=== PATIENT | female | born 1990 | race African-American/Black ===

== ENCOUNTER 2023-04-09 08:00 | Emergency (ER) | payer MEDICAID, SELFPAY ==
--- NOTE | ~2023-04-09 | CT_ITS ---
EXAMINATION: CT ABDOMEN AND PELVIS WITHOUT CONTRAST CLINICAL INFORMATION: Abdominal pain COMPARISON: None available. TECHNIQUE: Multidetector volumetric imaging was performed from the superior aspect of the liver through the pubic symphysis. Sagittal and coronal reformatted images were obtained on the technologist's workstation. This CT examination was performed using dose optimization techniques as appropriate, variously including the following: *Automated exposure control *Adjustment of mA and/or kV according to patient size (this includes techniques or standardized protocols for targeted exams where dose is matched to indication/reason for exam; i.e. extremities or head) *Use of iterative reconstruction technique DLP: 847 mGy-cm FINDINGS: LUNG BASES: The visualized lung bases are unremarkable. LIVER, GALLBLADDER, AND BILIARY TREE: The liver is normal in size, shape, and attenuation. No focal hepatic lesion or biliary ductal dilatation is present. The gallbladder is unremarkable with no evidence of radiopaque gallstones, gallbladder wall thickening, or obvious pericholecystic inflammatory changes. PANCREAS: Unremarkable. SPLEEN: Unremarkable. ADRENAL GLANDS: Unremarkable. KIDNEYS AND URETERS: The kidneys are normal in size, shape, and attenuation. No hydronephrosis, hydroureter, or calculi seen. No perinephric stranding. BLADDER: Unremarkable. GASTROINTESTINAL TRACT: The small and large bowel are unremarkable. The appendix is unremarkable. ABDOMINAL WALL: No significant hernia is appreciated. LYMPH NODES: Normal. VASCULAR: Unremarkable. PELVIC VISCERA: Unremarkable. OSSEOUS STRUCTURES: Extending from the lateral aspect of the right iliac crest, there is a 2.1 x 2.1 cm bony lesion which demonstrates at least partial medullary continuity with the iliac crest but does not demonstrate a completely developed chondral cap that is discernible on this CT examination. CT/CT abdomen pelvis wo IV con IMPRESSION: 1. No acute findings in the abdomen or pelvis. 2. Exophytic bony neoplasm extending laterally from the right iliac crest may reflect an osteochondroma/exostosis, though a well-defined chondral cap is not discerned. MRI is suggested for further assessment and characterization and to exclude the presence of soft tissue mass formation. Fleischner guidelines were followed.
[2023-04-09 08:32] VITALS: BP 128/81; PULSE 67; RESP 17; TEMP 36.4; O2SAT 97; BMI 39.9
[2023-04-09 12:28] LABS: Alanine Aminotransferase 14 U/L (0-31); Albumin Level 3.9 g/dL (3.5-5.0); Alkaline Phosphatase 35 U/L (39-117); Anion Gap 9 (12-20); Aspartate Amino Transferase 17 U/L (5-31); Bilirubin Total 0.4 mg/dL (0.0-1.0); Blood Urea Nitrogen 7 mg/dL (9-16); Calcium 9.1 mg/dL (8.4-10.2); Carbon Dioxide 23 mmol/L (22-29); Chloride 108 mmol/L (96-108); Creatinine Clr Calc Pharmacy 113.4; Estimated Glomerular Filt Rate > 60; Glucose Random 82 mg/dL (60-115); HCG Quantitative < 2 mIU/mL; Magnesium 2.1 mg/dL (1.6-2.6); Potassium 4.4 mmol/L (3.3-5.1); Sodium 136 mmol/L (135-145); Total Protein 7.2 g/dL (6.5-8.0)
[2023-04-09 14:38] VITALS: BP 109/88; PULSE 64; RESP 18; TEMP 37; O2SAT 98
--- NOTE | 2023-04-09 14:38 | ED_ITS ---
HPI - General Adult General Chief complaint: Abdominal Pain Stated complaint: Abd pain/vomiting Time Seen by Provider: 04/09/23 18:42 Source: patient and family (patient's mother) Mode of arrival: ambulatory Limitations: no limitations History of Present Illness HPI narrative: Patient is a 32 year old assigned female at with no reported medical history presenting to the emergency department today with abdominal pain. Patient states that she has had this pain for almost a year but it cyclically worsens every few weeks. Patient states that she has nausea and vomiting and Zofran does not work. Patient states that she was seen at an urgent care and they recommended she come to the ER immediately for appendicitis or gallbladder problem rule out. Patient denies any dizziness, lightheadedness, fever, chills, blurry vision, double vision, loss of vision, chest pain, difficulty breathing, shortness of breath, back pain, night sweats, pain with urination, increased urinary frequency, increased urinary urgency, blood in her urine or stool, syncope or a near syncopal episode, recent trauma or falls, bowel incontinence, bladder incontinence, bowel retention, bladder retention, or any other complaints at this time. Onset (ago): month(s) Location: abdomen Severity: mild Severity scale (1-10): 4 Pain Consistency: intermittent Relieving factors: none Exacerbating factors: none Associated symptoms: nausea/vomiting Treatments prior to arrival: other (zofran) Related Data Previous Rx's Medication Instructions Recorded metoclopramide HCl 5 mg tablet 5 mg PO DAILY #7 tabs 04/09/23 (Reglan) Allergies Allergy/AdvReac Type Severity Reaction Status Date / Time No Known Allergies Allergy Verified 04/09/23 11:20 Review of Systems 2 Constitutional: Constitutional: Reports no additional constitutional complaints, Denies chills, Denies fever(s) and Denies night sweats Eyes: Eyes: Reports no additional eye complaints, Denies blurry vision, Denies change in vision, Denies diplopia, Denies eye discharge, Denies loss of vision and Denies eye pain ENT: Denies dizziness Cardiovascular: Cardiovascular: Reports no additional cardiovascular complaints, Denies chest pain, Denies lightheadedness, Denies Loss of Consciousness and Denies dyspnea Respiratory: Respiratory: Reports no additional respiratory complaints and Denies dyspnea Gastrointestinal: Gastrointestinal: Reports no additional gastrointestinal complaints, Reports abdominal pain, Denies melena, Denies hematochezia, Denies change in bowel habits, Denies change in stool character, Reports nausea and Reports vomiting Genitourinary: Genitourinary: Denies hematuria, Denies urinary frequency, Denies dysuria, Denies urinary incontinence, Denies urinary hesitancy and Denies urinary urgency Musculoskeletal: Musculoskeletal: Reports no additional musculoskeletal complaints, Denies numbness and Denies tingling Neurologic: Denies dizziness, Denies loss of vision, Denies numbness and Denies tingling Psychiatric: Psychiatric: Reports no additional psychiatric complaints Endocrine: Endocrine: Reports no additional endocrine complaints Hematologic/Lymphatic: Hematologic/Lymphatic: Reports no additional hematologic/lymphatic complaints Allergic/Immunologic: Allergic/Immunologic: Reports no additional allergic/immunologic complaints PMFSH Past Medical History Attestation statement: The following information was validated with the patient. (all information validated with the patient's mother) Source: old records reviewed, obtained from family (patient's mother provided additional history and confirmed the history provided by the patient) and nursing notes reviewed Onset Date is defined in the Problem List Problems that require an onset date and time if occurred within 24 hrs of arrival to the ED Aortic Dissection and Rupture; Neurologic impairment; Cardiopulmonary Arrest; Endotracheal Intubation; Insertion or Replacement of Mechanical Circulatory Assist Device Social History Social History Advance Directives: No Advance Directives Information Provided: No Physical Exam ED Vital Signs: Vital Signs - 24 hr 04/09/23 08:32 04/09/23 14:38 Temperature 97.5 F 98.6 F Pulse Rate 67 64 Respiratory Rate 17 18 Blood Pressure 128/81 109/88 Pulse Oximetry 97 98 Oxygen Delivery Method Room Air Room Air BMI result Body Mass Index 39.9 Const General: cooperative, no acute distress, alert and awake Nutritional Appearance: well nourished Orientation/consciousness: patient oriented x3 Limitations: no limitations HENMT Head: Yes normal to inspection and Yes atraumatic Ears: hearing grossly normal bilaterally and external ears normal General nose exam: Normal external nose present, no nasal discharge noted and no epistaxis Face and sinus: Yes normal facial exam, No abrasion and No laceration Mouth: Normal oral and palatal mucosa present, no drooling and no muffled voice Eyes General: appearance normal, both eyes and all related structures Periorbital: periorbital findings normal Eyelids: Yes eyelids normal Conjunctivae: conjunctivae normal Pupils: Equal, round and reactive pupils present EOM: EOMs intact bilaterally Neck Neck: Yes normal visual inspection, Yes full ROM and Yes no lymphadenopathy Chest Chest palpation & inspection: normal inspection of the chest Resp Effort & Inspection: normal respiratory effort and able to speak in complete sentences GI Inspection: Yes normal to inspection Palpation (GI): Soft to palpation, not firm, nontender and no guarding Neuro General: patient oriented x3 and moves all extremities Cranial nerves: Yes Equal, round and reactive pupils present Cognition (Neuro): normal cognition Motor exam (neuro): 5/5 motor strength present throughout Sensory Exam: Normal double simultaneous stimulation for sensation Coordination: [id number] test normal Extrem General: Yes normal to inspection, Yes full ROM and Yes capillary refill normal Psych Appearance: grossly normal Mental Status: mental status grossly normal Affect: normal affect Attitude: cooperative Thought process: Normal thought process present Thought content: Normal thought content present Insight: Good insight present (Psych) Course Course Course Narrative: RME performed by Michelle Moore PA-C. Patient is a 32 year old assigned female at presenting to the emergency department with abdominal pain, nausea, and vomiting. Detailed physical exam and review of systems are deferred to the machine biller. Labs and swabs ordered. Patient placed back in the waiting room pending room availability and results. Medical Decision Making Medical Decision Making MDM Narrative: Patient is a 32 year old assigned female at with no reported medical history presenting to the emergency department today with intermittent abdominal pain, nausea, and vomiting. Patient's physical exam was unremarkable. Patient's blood work was unremarkable. Patient's urine showed no acute process. Patient's CT abdomen/pelvis showed a right iliac crest exophytic bony neoplasm consistent with osteochondroma. I explained my physical exam findings as well as all test results to the patient and the patient's mother. I answered all questions asked by the patient and the patient's mother. I stressed the importance of the patient taking her medication as prescribed. I stressed the importance of the patient following up with her primary care provider, a GI specialist, and an operating systems specialist. I stressed the importance of the patient returning to the emergency department immediately if her symptoms were to worsen or if she were to develop any dizziness, shortness of breath, difficulty breathing, chest pain, blurry vision, loss of vision, nausea, vomiting, abdominal pain, fever, chills, back pain, or any other complaints. Patient and the patient's mother verbalized agreement and understanding with this treatment plan and discharge. Differential Diagnosis Differential Diagnoses: The differential diagnosis associated with the presentation includes Abdominal pain Nausea Vomiting Admission/Observation Consideration of admission/observation: Escalation of care including admission/observation considered Patient would have been admitted to the hospital had her work up had any findings where hospital admission was appropriate and her clinical presentation warranted hospital admission. Lab Data [facility] Lab Attestation statement: I reviewed the patient's lab results. My interpretation of these results are in the [facility] Rationale portion of this note. 04/09/23 11:35 04/09/23 11:35 Labs: Lab Results 04/09/23 04/09/23 Range/Units 11:35 14:45 WBC 11.1 H (4.8-10.8) X10*3/uL RBC 4.37 (4.20-5.50) X10*6/uL Hgb 12.9 (12.0-16.0) g/dl Hct 38.9 (37.0-47.0) % MCV 89.0 (80.0-98.0) fL MCH 29.5 (27.0-33.0) pg MCHC 33.2 (31.0-35.0) g/dl RDW 13.2 (11.0-16.0) % Plt Count 216 (160-400) X10*3/uL MPV 9.4 (9.4-12.3) fL Immature Gran % (Auto) 0.2 (0.0-0.4) % Neut % (Auto) 52.0 (45-73) % Lymph % (Auto) 36.0 (20-40) % [place] % (Auto) 5.0 (2-11) % Eos % (Auto) 6.4 H (0-4) % Baso % (Auto) 0.4 (0-2) % Lymph # (Auto) 4.0 (1.2-4.9) X10*3/uL [place] # (Auto) 0.6 (0.1-1.2) X10*3/uL Eos # (Auto) 0.7 H (0.0-0.4) X10*3/uL Baso # (Auto) 0.0 (0.0-0.2) X10*3/uL Abs Immat Gran (auto) 0.02 (0.00-0.03) X10*3/uL Absolute Neuts (auto) 5.8 (2.0-8.3) x10*3/uL Absolute Nucleated RBC 0.000 (0.0-0.012) X10*3/uL Nucleated RBC % (auto) 0.0 (0.0-0.2) /100WBC Sodium 136 (135-145) mmol/L Potassium 4.4 (3.3-5.1) mmol/L Chloride 108 (96-108) mmol/L Carbon Dioxide 23 (22-29) mmol/L Anion Gap 9 L (12-20) BUN 7 L (9-16) mg/dL Creatinine 0.82 (0.5-1.4) mg/dL Estim Creat Clear Calc 113.4 Estimated GFR > 60 Random Glucose 82 (60-115) mg/dL Calcium 9.1 (8.4-10.2) mg/dL Magnesium 2.1 (1.6-2.6) mg/dL Total Bilirubin 0.4 (0.0-1.0) mg/dL AST 17 (5-31) U/L ALT 14 (0-31) U/L Alkaline Phosphatase 35 L (39-117) U/L Total Protein 7.2 (6.5-8.0) g/dL Albumin 3.9 (3.5-5.0) g/dL Beta HCG, Quant < 2 mIU/mL Urine Color Yellow Urine Appearance Clear Urine pH 7.0 (5.0-9.0) Ur Specific [place] 1.025 (1.005-1.025) Urine Protein Negative (Neg-Trace) mg/dL Urine Glucose (UA) Negative (Negative) mg/dL Urine Ketones 15 (Negative) mg/dL Urine Blood Negative (Negative) Urine Nitrite Negative (Negative) Ur Leukocyte Esterase Negative (Negative) Influenza Type A (PCR) NEGATIVE (Negative) Influenza Type B (PCR) NEGATIVE (Negative) RSV RNA Qual (PCR) NEGATIVE (Negative) SARS-CoV-2 RNA (RT-PCR) NEGATIVE (Negative) Independent Interpretation I performed an independent interpretation of an: CT Scan Interpretation: My interpretation is in agreement with the radiologist's impression of this imaging study. - EXAMINATION: CT ABDOMEN AND PELVIS WITHOUT CONTRAST CLINICAL INFORMATION: Abdominal pain COMPARISON: None available. TECHNIQUE: Multidetector volumetric imaging was performed from the superior aspect of the liver through the pubic symphysis. Sagittal and coronal reformatted images were obtained on the technologist's workstation. This CT examination was performed using dose optimization techniques as appropriate, variously including the following: *Automated exposure control *Adjustment of mA and/or kV according to patient size (this includes techniques or standardized protocols for targeted exams where dose is matched to indication/reason for exam; i.e. extremities or head) *Use of iterative reconstruction technique DLP: 847 mGy-cm FINDINGS: LUNG BASES: The visualized lung bases are unremarkable. LIVER, GALLBLADDER, AND BILIARY TREE: The liver is normal in size, shape, and attenuation. No focal hepatic lesion or biliary ductal dilatation is present. The gallbladder is unremarkable with no evidence of radiopaque gallstones, gallbladder wall thickening, or obvious pericholecystic inflammatory changes. PANCREAS: Unremarkable. SPLEEN: Unremarkable. ADRENAL GLANDS: Unremarkable. KIDNEYS AND URETERS: The kidneys are normal in size, shape, and attenuation. No hydronephrosis, hydroureter, or calculi seen. No perinephric stranding. BLADDER: Unremarkable. GASTROINTESTINAL TRACT: The small and large bowel are unremarkable. The appendix is unremarkable. ABDOMINAL WALL: No significant hernia is appreciated. LYMPH NODES: Normal. VASCULAR: Unremarkable. PELVIC VISCERA: Unremarkable. OSSEOUS STRUCTURES: Extending from the lateral aspect of the right iliac crest, there is a 2.1 x 2.1 cm bony lesion which demonstrates at least partial medullary continuity with the iliac crest but does not demonstrate a completely developed chondral cap that is discernible on this CT examination. CT/CT abdomen pelvis wo IV con IMPRESSION: 1. No acute findings in the abdomen or pelvis. 2. Exophytic bony neoplasm extending laterally from the right iliac crest may reflect an osteochondroma/exostosis, though a well-defined chondral cap is not discerned. MRI is suggested for further assessment and characterization and to exclude the presence of soft tissue mass formation. Fleischner guidelines were followed. Dictated By: Mike Bowles MD Signed By: Electronically signed by Mike Bowles MD 04/09/23 6328 Radiology Impression Discussion of test interpretation with radiology: I have reviewed the radiologist's reading. Independent Historian Clinical information obtained from an independent historian. History obtained from or confirmed by: Parent (patient's mother provided additional history and confirmed the history provided by the patient.) Prescription Management I considered prescription management with: Other (patient prescribed an anti- emetic.) Discharge Plan Discharge Clinical Impression: Osteochondroma, Abdominal pain Patient Disposition: Home, Self-Care Instructions: Abdominal Pain (ED), Benign Bone Tumor (DC) Additional Instructions: Follow up with your primary care provider, an orthopedic provider, and a GI specialist. Return to the emergency department immediately if your symptoms worsen or if you develop any dizziness, shortness of breath, difficulty breathing, chest pain, blurry vision, loss of vision, nausea, vomiting, abdominal pain, fever, chills, back pain, or any other complaints. Prescriptions: New metoclopramide HCl [Reglan] 5 mg tablet 5 mg PO DAILY Qty: 7 0RF Referrals: [facility] [place] [facility] [place] Group] (Call to establish and follow up with a GI specialist. ) [facility] [place] [Provider Group] (Call to establish and follow up with a primary care provider. If you already have a primary care provider, please follow up with them.) [facility] [place] [facility] [Provider Group] (Call to establish and follow up with a primary care provider. If you already have a primary care provider, please follow up with them.) [facility] [place] [facility] [Provider Group] (Call to establish and follow up with a primary care provider. If you already have a primary care provider, please follow up with them.) [facility] [place] [facility] [Provider Group] (Call to establish and follow up with an orthopedic provider.) Stand Alone Forms: Work/School Release Print Language: Wolof
== END 2023-04-09 21:49 | disposition home or self-care (01) ==
PROVIDERS: Physician Assistant Medical; Emergency Provider Emergency Medicine
DX: D16.9 Benign neoplasm of bone and articular cartilage, unspecified (principal); R11.2 Nausea with vomiting, unspecified; Z20.822 Contact with and (suspected) exposure to COVID-19; Z20.828 Contact with and (suspected) exposure to other viral communicable diseases; Z79.899 Other long term (current) drug therapy
CPT/HCPCS: 0241U; 36415; 74176; 80053; 81003; 83735; 84702; 85025; 99282; 99284

== ENCOUNTER 2023-06-28 08:03 | Outpatient (REF) | payer MEDICAID, SELFPAY ==
[2023-07-03 15:47] LABS: H Pylori Breath Test Negative (Negative)
== END 2023-06-28 08:04 | disposition home or self-care (01) ==
LOC: HO.HHCLNP 08:03
PROVIDERS: Visit Provider Nurse Practitioner Primary Care
DX: R10.13 Epigastric pain (principal)
CPT/HCPCS: 36415; 81513; 83013; 86592; 86803; 87389; 87491; 87591

== ENCOUNTER 2023-06-28 14:21 | Outpatient (REF) | payer MEDICAID, SELFPAY ==
[2023-06-29 04:07] LABS: HIV AB/AG Nonreactive (Nonreactive); HIV Num 1 0.04 S/CO (0.00-0.99); ~HepC Num1 0.22 S/CO (0.00-0.79); ~Hepatitis C Antibody Nonreactive (Nonreactive)
[2023-07-02 11:13] LABS: RPR Rapid Plasma Reagin NON-REACTIVE (NON-REACTIVE)
== END 2023-06-28 14:22 | disposition home or self-care (01) ==
LOC: HO.HHCL 14:21
PROVIDERS: Visit Provider Nurse Practitioner Primary Care
DX: Z11.3 Encounter for screening for infections with a predominantly sexual mode of transmission (principal)
CPT/HCPCS: 36415; 86592; 86803; 87389

== ENCOUNTER 2023-06-28 16:21 | Outpatient (REF) | payer MEDICAID, SELFPAY ==
[2023-06-29 14:48] LABS: C. trachomatis RNA TMA NOT DETECTED (NOT DETECTED); N. gonorrhoeae RNA TMA NOT DETECTED (NOT DETECTED)
== END 2023-06-28 16:22 | disposition home or self-care (01) ==
LOC: HO.HHCLNP 16:21
PROVIDERS: Visit Provider Nurse Practitioner Primary Care
DX: Z11.3 Encounter for screening for infections with a predominantly sexual mode of transmission (principal)
CPT/HCPCS: 36415; 81513; 87491; 87591

== ENCOUNTER 2023-07-26 08:50 | Outpatient (AMB) | payer MEDICAID, SELFPAY ==
[2023-07-26 08:58] VITALS: BMI 39.9
--- NOTE | 2023-07-26 08:58 | MHC.OFFVIS ---
Vital Signs 07/26/23 08:58 Height 5 ft 3 in Weight 225 lb BMI 39.9 Intake Visit Reasons: N/P lytic bone lesion of right hip per ref Intake Note: Barb is a 32 year old female who presents today as a new patient for a evaluation of her right hip lytic bone lesion. Patient reports she was at the ED department back in April when they did a CT scan and they informed her that she has a lesion in her right hip. She expresses that her pain comes and goes, however they are times when its constant every day. No hx of taking any meds to relieve pain. Allergies amoxicillin Allergy (Verified 07/26/23 09:12) Hives HPI HPI N/P lytic bone lesion of right hip per ref: Details: 32-year-old female who presents in the office today, as a new patient, for an evaluation of right hip pain. The patient was referred to the office by CARLOS Brady status post a CT at the ED obtained in 04/09/2023. While in the office today the patient reports she was seen in the ED in 04/[address] scan was obtained. She was informed it revealed a right hip lytic bone lesion. She states her pain is intermittent, but at times during the day it is constant. She denies a history of taking any medication for pain relief. 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 No ecchymosis, erythema, or edema. Full hip ROM in all planes. No tenderness to palpation over the greater trochanteric bursa. 5/5 strength with resisted hip flexion, knee extension, abduction, and abduction. Able to perform straight leg raise. NVI. 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 Solano is a 32-year-old female who presents in the office today, as a new patient, for an evaluation of right hip pain. The patient was referred to the office by CARLOS Brady status post a CT at the ED obtained in 04/09/2023. While in the office today the patient reports she was seen in the ED in 04/[address] scan was obtained. She was informed it revealed a right hip lytic bone lesion. She states her pain is intermittent, but at times during the day it is constant. She denies a history of taking any medication for pain relief. Case was reviewed with Dr. Inman who was not available to review the imaging in the office today and a collaborative treatment plan was made. The patient will be referred for a stat MRI with contrast for further evaluation of the sintia lesion on the right iliac crest. This has been ordered today. Follow up will be after the stat MRI imaging is obtained, or sooner if needed X-rays of the right hip which were obtained while in the office today and were reviewed by me, Tita Doe PA-C, revealed exophytic bony neoplasm extending laterally from the right iliac crest CT of the right hip, obtained in the ED on 4revealed: Exophytic sintia neoplasm extending laterally from the right iliac crest, may reflect an osteochondroma/exostosis, though as well-defined chondral cap is not discerned. Orders: Orders MR pelvis w con Today D49.89 - Neoplasm of unspecified behavior of other specified sites Patient Instructions: Scribed by Amy Garcia medical billing specialist, for Tita Doe PA-C on 07/26/2023 at 8:50 am, EST. Coding Level of Care Code New Pt Level 4 (09757) Diagnoses Neoplasm of pelvis D49.89
== END 2023-07-26 09:29 | disposition home or self-care (01) ==
PROVIDERS: Visit Provider Physician Assistant
DX: D49.89 Neoplasm of unspecified behavior of other specified sites (principal)
CPT/HCPCS: 99204

== ENCOUNTER 2023-07-26 09:07 | Outpatient (REF) | payer MEDICAID, SELFPAY ==
--- NOTE | ~2023-07-26 | XR_ITS ---
EXAMINATION: XR HIP, RIGHT CLINICAL INFORMATION: 2.1 cm bony lesion extending from the lateral aspect of the right iliac crest with at least partial medullary continuity with the iliac crest for which MRI was recommended for further evaluation to exclude presence of soft tissue mass. Pain in unspecified hip. COMPARISON: CT abdomen and pelvis 04/09/2023. TECHNIQUE: AP view of the pelvis as well as AP and frog lateral views of the right hip. FINDINGS: Radiopaque jewelry overlies the lower lumbar spine. Bilateral sacroiliac joints are symmetric. Pubic symphysis is preserved. Small pelvic calcifications are likely vascular. Bilateral right hip joints appear symmetric and preserved. Redemonstration of a bony exostosis along the lateral aspect of the right iliac crest measuring approximately 2 cm, better characterized on CT scan. As previously noted in prior report for CT scan, MRI recommended for further characterization. XR/XR hip RT min 2V IMPRESSION: Redemonstration of a bony exostosis along the lateral aspect of the right iliac crest measuring approximately 2 cm, better characterized on CT scan. As previously noted in prior report for CT scan, MRI recommended for further characterization to evaluate for possible associated pathology, soft tissue mass.
== END 2023-07-26 09:08 | disposition home or self-care (01) ==
LOC: HO.HOSX 09:07
PROVIDERS: Visit Provider Physician Assistant
DX: D49.89 Neoplasm of unspecified behavior of other specified sites (principal); M25.551 Pain in right hip
CPT/HCPCS: 73502; 99212

== ENCOUNTER 2023-09-11 14:58 | Outpatient (REF) | payer BC, SELFPAY ==
--- NOTE | ~2023-09-11 | MR_ITS ---
EXAMINATION: MR PELVIS WITHOUT AND WITH CONTRAST CLINICAL INFORMATION: Right iliac crest exophytic bone neoplasm COMPARISON: CT scan of abdomen and pelvis on 04/09/2023 TECHNIQUE: Examination was performed in a high field strength MRI scanner. Pre-contrast multiplanar multisequence MR imaging of the pelvis was performed without IV contrast enhancement. Post-contrast coronal, axial and sagittal T1 weighted fat suppressed images of the pelvis were obtained after IV injection of 10 mL Gadavist. FINDINGS: Urinary bladder is well filled with urine. Uterus is unremarkable. Pelvic fat plane is clean. No pelvic ascites is seen. No abnormally enlarged iliac or inguinal lymph nodes are found. Small umbilical hernia containing mesenteric fat is present. A bony protuberance is seen projecting from lateral cortex of anterior superior right iliac crest, measuring 1.8 cm in AP diameter, 2.2 cm in width, 1.5 cm in vertical height. The lesion remains isointense with the iliac bone with no signs of contrast enhancement, soft tissue component or aggressive new bone formation. The pelvis and bilateral hips are intact. Bilateral femoral heads and necks show normal signal without focal lesion. No abnormal joint effusion can be seen. The visualized bony pelvis show normal signal. Bilateral sacroiliac joints also appear unremarkable. MR/MR pelvis wo/w con IMPRESSION: 1. A 2.2 cm bony protuberance is seen projecting from lateral cortex of anterior superior right iliac crest, without signs of contrast enhancement, soft tissue component or aggressive new bone formation. 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 2. Small umbilical hernia containing mesenteric fat.
[2023-09-11] MEDS: gadobutroL 10 ML VIAL IVPUSH (16:17)
== END 2023-09-11 14:59 | disposition home or self-care (01) ==
LOC: HO.MRI 14:58
PROVIDERS: PCP Nurse Practitioner Primary Care; Visit Provider Physician Assistant
DX: D49.89 Neoplasm of unspecified behavior of other specified sites (principal)
CPT/HCPCS: 72197; A9585

== ENCOUNTER 2023-09-26 11:51 | Outpatient (AMB) | payer BC, SELFPAY ==
--- NOTE | 2023-09-26 11:51 | A.OFFVIS_ITS ---
Vital Signs 09/26/23 11:52 Height 5 ft 3 in Weight 225 lb BMI 39.9 Intake Visit Reasons: Pelvis MRI review Intake Note: Barb is a 33 year old female who is on the phone for a telehealth visit for a MRI review of her pelvis. Patient reports she is going well, however she is having some discomfort when she is laying down. 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 I last saw the patient in the office on 07/26/2023 when imaging was ordered.? While on the phone the patient reports she is doing well, however, is having some discomfort when laying down. ? 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 Telehealth Telehealth Telehealth Platform: Telephone Location of provider rendering services: practice address Location of patient: address on file Patient Identification confirmed using: Name, : Yes Telehealth method: voice only Patient verbally consented to treatment: Yes Patient verbally consented to billing insurance company: Yes Patient informed of any privacy concerns related to visit: Yes Minutes spent on Phone/Video with Pt.: 10 Assessment & Plan Assessment & Plan (1) Neoplasm of pelvis: Code(s): D49.89 - Neoplasm of unspecified behavior of other specified sites Category: Medical Plan Ms. 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 I last saw the patient in the office on 07/26/2023 when imaging was ordered.? ? While on the phone the patient reports she is doing well, however, is having some discomfort when laying down.? ? The patient may return to normal activities as tolerated. She no longer needs any additional orthopedic intervention; therefore, follow-up will be PRN, or sooner if needed. ? ? MRI of the pelvis, obtained on 09/11/2023, revealed: ? 1. A 2.2 cm bony protuberance is seen projecting from lateral cortex of anterior superior right iliac crest, without signs of contrast enhancement, soft tissue component or aggressive new bone formation. 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 2. Small umbilical hernia containing mesenteric fat.? Patient Instructions: Scribed by Amy Garcia medical case worker, for Tita Doe PA-C on 09/26/2023 at 11:49 am, EST.? Coding Level of Care Code Tele Est Pt Level 3 (54475) Diagnoses Neoplasm of pelvis D49.89
[2023-09-26 11:52] VITALS: BMI 39.9
== END 2023-09-26 12:13 | disposition home or self-care (01) ==
LOC: HO.HOS 11:51
PROVIDERS: PCP Nurse Practitioner Primary Care; Visit Provider Physician Assistant
DX: D49.89 Neoplasm of unspecified behavior of other specified sites (principal); M76.21 Iliac crest spur, right hip
CPT/HCPCS: 99441

== ENCOUNTER → 2023-09-26 11:51 | Outpatient (BNVA) | payer BC, SELFPAY | PROVIDERS: PCP Nurse Practitioner Primary Care; Visit Provider Physician Assistant ==

== ENCOUNTER 2023-10-19 09:53 | Outpatient (REF) | payer BC, SELFPAY ==
--- NOTE | ~2023-10-19 | XR_ITS ---
EXAMINATION: XR HAND, LEFT CLINICAL INFORMATION: Left hand/ring finger pain. COMPARISON: None available. TECHNIQUE: PA, lateral, and oblique views of the left hand. FINDINGS: Tiny, minimally displaced cortical fracture along the volar base of the fourth middle phalanx which contacts the periphery of the proximal interphalangeal articular surface. Mild surrounding soft tissue swelling. No additional fracture. Normal carpal alignment. No dislocation. No concerning lytic or blastic osseous lesion. No abnormal soft tissue calcification. XR/XR hand LT min 3V IMPRESSION: Tiny, minimally displaced buckle fracture along the volar base of the fourth middle phalanx. Mild surrounding soft tissue swelling.
== END 2023-10-19 09:54 | disposition home or self-care (01) ==
LOC: HO.HOSX 09:53
PROVIDERS: PCP Nurse Practitioner Primary Care
DX: S62.645A Nondisplaced fracture of proximal phalanx of left ring finger, initial encounter for closed fracture (principal)
CPT/HCPCS: 73130

== ENCOUNTER 2023-10-19 09:53 | Outpatient (AMB) | payer BC, SELFPAY ==
--- NOTE | 2023-10-19 10:06 | MHC.OFFVIS ---
Vital Signs 10/19/23 10:07 Height 5 ft 2 in Weight 192 lb BMI 35.1 Handedness Right Intake Visit Reasons: FC- nondisplaced fx LT ring finger Intake Note: Barb is a 33 year old right hand dominant female who presents today for a Left 5th digit fracture. Patient reports on 10/04/23 she was playing football with her son's friend, she said she went to catch the ball and saw her son also going towards the ball, she is unaware how she hurt her pinky at the time of this incident. She expresses immediate pain resulted after this injury. She was seen in [facility] where they took x-rays and placed her in a finger splint. She is unable to make a closed with with all her fingers due to this injury. There has been no improvement in her symptoms since the day of injury. She has tried ciing but found no relief. Allergies amoxicillin Allergy (Verified 10/19/23 10:13) [facility] Comments Details: Patient is a 33 YO F who presents for evaluation of a L ring finger fracture, date of injury 10/04/23. The patient reports that she was playing in her yard with her son, when he accidentally ran into her causing injury to her L ring finger. Patient previously evaluated and diagnosed with nondisplaced L ring finger fracture. Today, the patient reports that she is still experiencing significant pain, but that the ecchymosis and edema that she had at tome of injury has since resolved. Patient reports that she is unable to make a closed fist at this time. Patient reports that she has been wearing a silver finger splint since being previously evaluated, but she feels this splint is rather uncomfortable. 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 Neuro: Median, ulnar, radial nerves motor and sensory intact and sensation is normal to the tips of all digits. Vascular: Cap refill brisk Pain: Patient reports tenderness to palpation over the proximal phalanx of the left ring finger. No other pain to palpation noted ROM: Limited range of motion of both the left ring and small fingers due to pain, full and intact range of motion of the left thumb, index finger, middle finger Skin: No lacerations or abrasions. General: No ecchymosis, erythema, or evidence of infection. Psych: Appears grossly normal Affect normal Attitude cooperative Office Procedures Fracture Care Details: Left proximal phalanx fracture Fracture Billing Code: Fracture Billing Code Results Reviewed Results Reviewed: X-rays obtained in the office today and independently reviewed by me, Lobo Ron PA-C, demonstrate nondisplaced fracture of the proximal phalanx of the left ring finger. Assessment & Plan Assessment & Plan (1) Fracture of proximal phalanx of left ring finger: Code(s): S62.615A - Displaced fracture of proximal phalanx of left ring finger, initial encounter for closed fracture Category: Medical Qualifiers: Encounter type: initial encounter Fracture type: closed Fracture alignment: nondisplaced Qualified Code(s): S62.645A - Nondisplaced fracture of proximal phalanx of left ring finger, initial encounter for closed fracture Plan 1. Left ring finger proximal phalanx fracture, closed, nondisplaced Patient is educated on her injury Patient is informed about the typical recovery course Patient is informed that, due to nondisplaced nature of the injury, surgery will not be necessary Patient will be given a new silver finger splint to wear at all times except for bathing Patient educated that rest, ice, compression, elevation will help with swelling and pain due to this injury Patient is advised to continue using Tylenol, ibuprofen for pain control as needed Patient will follow-up in 2 weeks with repeat x-rays for reassessment of fracture and discussion of further treatment, sooner with any acute concerns Orders: Orders XR hand LT min 3V Today M79.642 - Pain in left hand Coding Level of Care Code New Pt Level 3 (21100) Diagnoses Closed nondisplaced fracture of proximal phalanx of left ring finger, initial encounter S62.645A Encounter type: initial encounter Fracture type: closed Fracture alignment: nondisplaced CPT Codes Fracture Care - Fracture Billing Code: Fracture Billing Code ([id number])
[2023-10-19 10:07] VITALS: BMI 35.1
== END 2023-10-19 10:56 | disposition home or self-care (01) ==
PROVIDERS: PCP Nurse Practitioner Primary Care
DX: S62.645A Nondisplaced fracture of proximal phalanx of left ring finger, initial encounter for closed fracture (principal)
CPT/HCPCS: 99203; 99213

== ENCOUNTER 2023-11-02 07:55 | Outpatient (REF) | payer BC, SELFPAY ==
--- NOTE | ~2023-11-02 | XR_ITS ---
EXAMINATION: XR HAND, LEFT CLINICAL INFORMATION: Pain in left hand COMPARISON: X-ray left hand of 10/19/2023. TECHNIQUE: PA, lateral, and oblique views of the left hand. FINDINGS: There appears to be a small chip fracture of the base of middle phalanx of the fourth finger; this is seen to best advantage on the oblique view. No distinct erosive process. Joint spaces appear to be maintained. There is no distinct change in alignment since the previous evaluation. XR/XR hand LT min 3V IMPRESSION: Small chip fracture at the base of middle phalanx of the fourth finger, without any appreciable change in alignment since the previous evaluation.
== END 2023-11-02 07:56 | disposition home or self-care (01) ==
LOC: HO.HOSX 07:55
DX: S62.657A Nondisplaced fracture of middle phalanx of left little finger, initial encounter for closed fracture (principal); X58.XXXA Exposure to other specified factors, initial encounter; Y93.9 Activity, unspecified; Y92.9 Unspecified place or not applicable; Y99.9 Unspecified external cause status
CPT/HCPCS: 73130

== ENCOUNTER 2023-11-02 12:50 | Outpatient (AMB) | payer BC, SELFPAY ==
[2023-11-02 12:53] VITALS: BMI 35.1
--- NOTE | 2023-11-02 12:53 | A.OFFVIS_ITS ---
Vital Signs 11/02/23 12:53 Height 5 ft 2 in Weight 192 lb BMI 35.1 Intake Visit Reasons: OV-nondisplaced fx LT ring finger-w/xray Intake Note: Barb is a 33 yo right hand dominant female who presents today for follow up evaluation of a nondisplaced fracture to the left ring finger. Today, patient reports pain level at 6/7 on the 0-10 pain scale. Patient reports not taking anything for the pain. She would like to try a different finger splint due to weird sensation from the metal. 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 Allergies amoxicillin Allergy (Verified 11/02/23 12:53) Hives HPI HPI OV-nondisplaced fx LT ring finger-w/xray: Details: Patient is a 33-year-old female presents for repeat evaluation of nondisplaced fracture of the proximal phalanx of the left ring finger, date of injury 10/04/2023. Today, patient reports that she is feeling well and then she is not experiencing any pain at the fracture site. However, she does feel that her finger is stiff from being in the splint. Patient also reports that she is having some itchiness in response to the splint being on, and inquires if she will be able to remove that at this time. Patient denies any numbness or tingling in the left hand. No other acute complaints or concerns at this time. 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 Neuro: Median, ulnar, radial nerves motor and sensory intact and sensation is normal to the tips of all digits. Vascular: Cap refill brisk Pain: Patient reports no tenderness to palpation about the fracture site Patient does report discomfort on the dorsal aspect of the MCP and PIP joints when she attempts to make a closed fist, but states that this feels more like a stiffness than a sharp pain. ROM: Reduced active range of motion of the right ring finger With encouragement, patient is able to get approximately 0.5 cm from making a full closed fist Extension full and intact Range of motion about her digits of the left hand full and intact Skin: No lacerations or abrasions. General: No ecchymosis, erythema, or evidence of infection. Psych: Appears grossly normal Affect normal Attitude cooperative Results Reviewed Results Reviewed: X-rays obtained in the office today and independently reviewed by me, Lobo Ron PA-C, demonstrate nondisplaced fracture of the proximal phalanx of the left ring finger, unchanged from previous x-rays. Assessment & Plan Assessment & Plan (1) Fracture of proximal phalanx of left ring finger: Code(s): S62.615A - Displaced fracture of proximal phalanx of left ring finger, initial encounter for closed fracture Category: Medical Qualifiers: Encounter type: initial encounter Fracture alignment: nondisplaced Fracture type: closed Qualified Code(s): S62.645A - Nondisplaced fracture of proximal phalanx of left ring finger, initial encounter for closed fracture Plan 1. Fracture proximal phalanx of left ring finger Treated nonoperatively Patient is healing well from her injury Patient is educated about the typical recovery course At this point, patient is informed that she no longer needs to wear the silver finger splint, and can switch to jose taping for stabilization Patient is also encouraged to begin gentle range of motion of the left ring finger in order to prevent stiffness Patient is educated to continue to adhere to a strict 2 lb weight limit in that hand Patient reports that she has been working, but has been able to accommodate this 2 lb weight Patient will follow-up in 4 weeks for [id number] check, x-rays if necessary, sooner with any acute concerns Orders: Orders XR hand LT min 3V 11/02/23 M79.642 - Pain in left hand Coding Level of Care Code Global (00136) Diagnoses Closed nondisplaced fracture of proximal phalanx of left ring finger, initial encounter S62.645A Encounter type: initial encounter Fracture alignment: nondisplaced Fracture type: closed
== END 2023-11-02 13:36 | disposition home or self-care (01) ==
PROVIDERS: PCP Nurse Practitioner Primary Care
DX: S62.645A Nondisplaced fracture of proximal phalanx of left ring finger, initial encounter for closed fracture (principal)
CPT/HCPCS: 99213

== ENCOUNTER 2023-12-07 16:22 | Outpatient (REF) | payer BC, SELFPAY | END 2023-12-07 16:23 | disposition home or self-care (01) | LOC: HO.HHCLNP 16:22 | PROVIDERS: Visit Provider Nurse Practitioner Primary Care | DX: Z13.89 Encounter for screening for other disorder (principal) ==

== ENCOUNTER 2023-12-12 11:02 | Outpatient (REF) | payer BC, SELFPAY ==
[2023-12-13 06:14] LABS: CT PCR NOT DETECTED (Not Detect.); NG PCR NOT DETECTED (Not Detect.)
== END 2023-12-12 11:03 | disposition home or self-care (01) ==
LOC: HO.HHCL 11:02
PROVIDERS: Visit Provider Nurse Practitioner Primary Care
DX: Z00.00 Encounter for general adult medical examination without abnormal findings (principal); Z11.3 Encounter for screening for infections with a predominantly sexual mode of transmission
CPT/HCPCS: 87491; 87591

== ENCOUNTER 2024-04-30 13:29 | Outpatient (REF) | payer BC, SELFPAY ==
--- OUTSIDE RECORDS SUMMARY | 2024-04-30 15:43 | XMS_ITS | Encounter Summary ---
Author Organization [employer] Address [address] [place] [address] [place] [address] Care Team Providers Care Apartment Community Manager Name Role Phone Heather Mello Primary Care Provider [phone] Sophie Fajardo Primary Care Provider [phone] Reason for Visit * Reason Comments Med Refill Encounter Details Date Type Department Care Team (Late st Contact Info) Description 08/10/2022 Refill [facility] MEDICINE [address] [place] [address] Mari Fragoso FNP [address] [place], [place] [phone] Social History Tobacco Use Types Packs/Day Years Used Date Smoking Tobacco: Never Assessed Comments Unknown Sex and Gender Information Value Date Recorded Sex Assigned at Female 01/30/2022 10:38 AM EDT Legal Sex Female 10:38 AM EDT Gender Identity Female 01/30/2022 10:38 AM EDT Sexual Orientation Straight 01/30/2022 10 :38 AM EDT documented as of this encounter Plan of Treatment Not on file documented as of this encounter Visit Diagnoses Not on filedocumented in this encounter Care Teams Apartment Community Manager Relationship Specialty Start Date End Date Heather Mello FNP [address] [place], [place] [phone] PCP - General Family Medicine 11/24/21 12/27/22 Sophie Fajardo ANP [address] [place] [id number] PCP - General Family Medicine 05/10/23 documented as of this encounter
--- OUTSIDE RECORDS SUMMARY | 2024-04-30 15:43 | XMS_ITS | Encounter Summary ---
Author Organization [employer] Address [address] [facility] [address] [place] [address] Care Team Providers Care Development Associate Name Role Phone Sophie Fajardo Primary Care Provider [phone] Reason for Visit * Reason Comments Med Refill Encounter Details Date Type Department Care Team ([facility] st Contact Info) Description 01/17/2023 Refill [facility] MEDICINE [address] [place] [address] PomonaMari FNP [address] [place] [address] Social History Tobacco Use Types Packs/Day Years [...] on filedocumented in this encounter Care Teams Development Associate Relationship Specialty Start Date End Date Sophie Fajardo ANP [address] [place] [address] PCP - General Family Medicine 05/10/23 documented as of this encounter
--- OUTSIDE RECORDS SUMMARY | 2024-04-30 15:43 | XMS_ITS | Encounter Summary ---
Author Organization [employer] Address [address] [place] [address] Care Team Providers Care Remote Sensing Engineer Name Role Phone Sophie Fajardo CARLOS Primary Care Provider [phone] Reason for Visit * Reason Onset Date Comments Paperwork/Forms 04/29/2024 Encounter Details Date Type Department Care Team ([facility] st Contact Info) Description 04/29/2024 Telephone [facility] MEDICINE [address] [place], [place] [phone] Kamla De León, RN [address] [place] [address] Paperwork/Forms Social History Tobacco Use Types Packs/Day Years Used Date Smoking Tobacco: Never Smokeless Tobacco: Never Alcohol Use Standard Drinks/Week Comments Yes 0 (1 standard drink = 0.6 oz pur e alcohol) occasionally Depression Answer Date Recorded Patient Health Questionnaire-9 Score 0 06/28/2023 Patient Health Questionnaire-9 Score 0 06/28/2023 Last PHQ-9: Questionnaire Data Not on file 0 06/28/2023 Housing Stability Answer Date Recorded What is your housing situation today? I have derik moncada 06/28/[address] you li ve. Do you have problems with any of the following? None of the above 06/28/2023 Food Insecurity Answer Date Recorded Within the past 12 months, y ou worried that your food would run out before you got money to buy more: Never True 06/28/2023 Within the past 12 months,th e food you bought just didn't last and you didn't have enough money to get more: Never True Transportation Answer Date Recorded In the past 12 months, has l ack of transportation kept you from medical appts, meetings, work or from getting things needed for daily living? No 06/28/2023 Utilities Answer Date Recorded In the past 12 months, has t he electric, gas, oil or water company threatened to shut off services in your home? No 06/28/2023 Depression Answer Date Recorded Patient Health Questionnaire-2 Score 0 06/28/2023 Internet Access Answer Date Recorded Internet Access Q1 Yes 11/30/2023 Internet Access Q2 Not on file 11/30/2023 Comments No Sex and Gender Information Value Date Recorded Sex Assigned at Female 01/30/2022 10:38 AM EDT Legal Sex Female 10:38 AM EDT Gender Identity Female 01/30/2022 10:38 AM EDT Sexual Orientation Straight 01/30/2022 10 :38 AM EDT documented as of this encounter Miscellaneous Notes * Telephone Encounter - Kamla De León RN - 04/29/2024 3:55 PM EST Received paperwork for pt's school requesting PE info and vaccine info. Filled out. Informed pt needs varicella titer and possible TB testing per paperwork. Labs ordered and directed pt to come to the lab so I can finish her forms. documented in this encounter Plan of Treatment Scheduled Orders Name Type Priority Associated Diagnoses Orde r Schedule Varicella Zoster Antibody, IgG Lab Routine Immunity status testing Expected: 04/29/2024 (Approximate), Expires: 04/29/2025 T-SPOT??.TB Lab Routine Screening for tuberculosis Expected: 04/29/2024 (Approximate), Expires: 04/29/2025 documented as of this encounter Visit Diagnoses Diagnosis Immunity status testing Antibody response examination Screening for tuberculosis Screening examination for pulmonary tuberculosis documented in this encounter Additional Health Concerns Assessment Noted Time PHQ-9 Depression Total Score: 0 06/28/19 1:24 PM EDT documented as of this encounter Care Teams Remote Sensing Engineer Relationship Specialty Start Date End Date Sophie Fajardo ANP [address] [place] [id number] PCP - General Family Medicine 05/10/23 documented as of this encounter
--- OUTSIDE RECORDS SUMMARY | 2024-04-30 15:43 | XMS_ITS | Encounter Summary ---
Author Organization [employer] Address [address] [place] [address] [place] [address] Care Team Providers Care Supervisor Salvage Name Role Phone Heather Mello Primary Care Provider [phone] Sophie Fajardo Primary Care Provider [phone] Reason for Visit * Reason Comments Med Refill Encounter Details Date Type Department Care Team (Late st Contact Info) Description 09/29/2022 Refill [facility] MEDICINE [address] [place] [address] Mari Fragoso FNP [address] [place], [place] [phone] Social History Tobacco Use Types Packs/Day Years [...] on filedocumented in this encounter Care Teams Supervisor Salvage Relationship Specialty Start Date End Date Heather Mello FNP [address] [place], [place] [phone] PCP - General Family Medicine 11/24/21 12/27/22 Sophie Fajardo ANP [address] [place] [address] [phone] PCP - General Family Medicine 05/10/23 documented as of this encounter
--- OUTSIDE RECORDS SUMMARY | 2024-04-30 15:43 | XMS_ITS | Clinical Summary ---
Author Organization [employer] Address [address] [facility] 7t [place] [address] Care Team Providers Care Wrapper Hand Name Role Phone Sophie Fajardo CARLOS Primary Care Provider [phone] Allergies Active Allergy Reactions Criticality Noted Date Comments Amoxicillin Rash Low 11/12/2020 Medications omeprazole (PriLOSEC) [address] capsuleIndicati ons:Epigastric pain Take 1 capsule (20 mg) by mouth before breakfast and before evening meal. Do not crush or chew. 120 capsule 4 Active drospirenone-et hinyl estradiol (Cindy) 3-0.02 MG tabletIndicatio ns: control counseling TAKE 1 TABLET BY MOUTH EVERY DAY IN THE MORNING 84 tablet 3 4 Active Active Problems Problem Noted Date Diagnosed Date Lytic bone lesion of hip 12/07/2023 Overview (12/07/2023): Established / [facility] Ortho for exophytic bony neoplasm extending laterally from the right iliac crest 09/26/23 Ortho note She no longer needs any additional orthopedic intervention; therefore, follow-up will be PRN, or sooner if needed. MRI of the pelvis, obtained on 09/11/2023, revealed: 1. A 2.2 cm bony protuberance is seen projecting from lateral cortex of anterior superior right iliac crest, without signs of contrast enhancement, soft tissue component or aggressive new bone formation. 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 2. Small umbilical hernia containing mesenteric fat. Epigastric pain 12/07/2023 Overview (12/07/2023): Images from the original note were not included. Saw [facility] 09/2023 PPI did not help, h. Pylori breath test negative Anxiety 06/29/2023 Polycystic ovary syndrome 06/29/2023 Encounters Date Type Department Care Team Description 04/29/[address] [facility] [address] [place] [address] Kamla De León, RN Paperwork/Forms from Last 3 Months Immunizations Name Administration Dates Next Due Hep B, Unspecified 07/17/2016 Hep B, adult 12/31/2019,07/28/2019,06/20/2019 Influenza Injectable Quadriv alant Preservative Free IIV4 MDCK 12/25/2022,12/28/2021,12/31/2019 Influenza injectable quadriv alent preservative free 12/29/2020 MMR 07/17/2016 Tdap 06/20/2019,07/09/2010 Typhoid, ViCPs 06/19/2022 Social History Tobacco Use Types Packs/Day Years Used Date Smoking Tobacco: Never Smokeless Tobacco: Never Tobacco Cessation:Counseling Given: Not Answered Alcohol Use Standard Drinks/Week Comments Yes 0 [...] Orientation Straight 01/30/2022 10 :38 AM EDT Last Filed Vital Signs Vital Sign Reading Time Taken Comments Blood Pressure 110/70 12/07/2023 1:55 PM EDT Pulse 59 12/07/2023 1:55 PM EDT Temperature 37.7 ??C (99.9 ??F) 12/07/2023 1:55 PM ED T Respiratory Rate 16 12/07/2023 1:55 PM EDT Oxygen Saturation 98% 07/05/2023 10:28 AM EDT Inhaled Oxygen Concentration - - Weight 95.4 kg (210 lb 6.4 oz) 12/07/2023 1:55 P M EDT Height 157.5 cm (5' 2 ) 07/05/2023 10:28 AM EDT Body Mass Index 38.48 07/05/2023 10:28 AM EDT Plan of Treatment Health Maintenance Due Date Last Done Comments Alcohol/Substance Use Screening 2003 Family Planning (PISQ) 07/28/2006 Pap Smear 07/28/2012 Cervical Cancer Screening 07/28/2021 HPV/Cotest 07/28/2021 Influenza Vaccine (#1) 2023 3, 12/28/2021, 12/29/2020, Additional history exists Depression Screening 06/27/2024 06/28/2023, 06/28/19 24 SDOH Screening 06/27/2024 06/28/2023 Tobacco Screening 12/06/2024 12/07/2023 Lipid Panel 11/12/2025 11/12/2020 DTaP/Tdap/Td Vaccines (3 - Td or Tdap) 06/19/2029 06/20/2019, 07/09/2010 Zoster Vaccines (1 of 2) 07/28/2041 RSV Patients and Patients Aged 60 years or older (1 - 1-dose 75+ series) 07/28/2066 Hepatitis B Vaccines Completed 12/31/2019, 07/28/2019, 06/20/2019, Additional history exists HIV Screening Completed 06/28/2023, 11/12/2020 Hepatitis C Screening Completed 06/28/2023 COVID-19 Vaccine Completed 04/27/2024 HIB Vaccines Aged Out No longer eligi ble based on patient's age to complete this topic HPV Vaccines Aged Out No longer eligi ble based on patient's age to complete this topic Hepatitis A Vaccines Aged Out No long er eligible based on patient's age to complete this topic IPV Vaccines Aged Out No longer eligi ble based on patient's age to complete this topic Meningococcal Vaccine Aged Out No foreign maddi eligible based on patient's age to complete this topic Pneumococcal Vaccine: Pediatrics (0 to 5 Years) and At-Risk Patients (6 to 49) Years) Aged Out No longer eligible based on patient's age to complete this topic RSV under 20 months Aged Out No longe r eligible based on patient's age to complete this topic Rotavirus Vaccines Aged Out No longer eligible based on patient's age to complete this topic Procedures Procedure Name Priority Date/Time Associated Diagnosis Comments HEPATITIS C AB W/REFL TO HCV RNA, QN, PCR Routine 06/28/2023 2:24 PM EDT Routine screening for STI (sexually transmitted infection) HIV 1/2 ANTIGEN/ANTIBODY, FOURTH GENERATION W/RFL Routine 06/28/2023 2:24 PM EDT Routine screening for STI (sexually transmitted infection) LIPID PANEL, STANDARD Routine 11/12/2020 10:39 AM EDT from Last 3 Months or Most Recently Relevant to Health Maintenance Results * Hepatitis C Antibody with Reflex to HCV, RNA, Quantitative, Real-Time PCR (06/28/2023 2:24 PM EDT) Hepatitis C Antibody Nonreactive Nonreactive [facility] Comment:Antibodies to HCV no t detected; does not exclude early acuteHCV infection. Blood Venous blood specimen / Unknown 06/28/2023 2:24 PM EDT 06/28/2023 4:12 PM EDT Sophie Fajardo [facility] LAB BLOOD ORDERABLES Final Resul t Performing Organization Address [facility] de Phone Number [facility] [address] [place] [address] [phone] * HIV-1/2 Antigen and Antibodies, Fourth Generation, with Reflexes (06/28/2023 2:24 PM EDT) Pathologist [facility] HIV AB/AG Nonreactive Nonreactive [facility] Comment:HIV-1 p24 Ag and/or HIV-1/HIV-2 Ab not detected.A test result that is nonreactive does not exclude thepossibility of exposure to or infection with HIV-1 and/orHIV-2. Nonreactive results in this assay for individualswith prior exposure to HIV-1 and/or HIV-2 may be due toantigen and antibody levels that are below the limit ofdetection of this assay.The [facility] HIV Ag/Ab Combo assay result andsupplemental assay results should be interpreted inconjunction with the patient's clinical presentation,history and other laboratory results. If the results areinconsistent with clinical evidence, additional testing issuggested to confirm the result. Blood Venous blood specimen / Unknown 06/28/2023 2:24 PM EDT 06/28/2023 4:12 PM EDT Sophie Fajardo [facility] LAB BLOOD ORDERABLES Final Resul t Performing Organization Address [facility] Co de Phone Number [facility] [address] [place] [address] [phone] * (ABNORMAL) LIPID PANEL, STANDARD (11/12/2020 10:39 AM EDT) Pathologist [facility] Chol/HDLC Ratio 3.3 <5.0 (calc) [facility] Cholesterol, Total 183 <200 mg/dL [facility] HDL Cholesterol 56 > OR = 50 mg/dL [facility] LDL Cholesterol 107(H) mg/dL (calc) [facility] Comment: Reference range: <100 ?? Desirable range <100 mg/dL for primary prevention; ?? <70 mg/dL for patients with CHD or diabetic patients ?? with > or = 2 CHD risk factors. ?? LDL-C is now calculated using the Anel ?? calculation, which is a validated novel method providing ?? better accuracy than the Friedewald equation in the ?? estimation of LDL-C. ?? Layo MORIN et al. MARLON. 2013;310(19): 1116-3038 ?? (http://[employer].Ace Metrix/faq/MHS981) Non-HDL Cholesterol 127 <130 mg/dL (calc) [facility] Comment: For patients with diabetes plus 1 major ASCVD risk ?? factor, treating to a non-HDL-C goal of <100 mg/dL ?? (LDL-C of <70 mg/dL) is considered a therapeutic ?? option. Triglycerides 100 <150 mg/dL [facility] 11/12/2020 10:3 9 AM EDT us Viri An PROGRAM ADVISOR LAB BLOOD ORDERABLES Final Res ult [facility] [address] from Last 3 Months or Most Recently Relevant to Health Maintenance Insurance HMO Care Teams Wrapper Hand Relationship Specialty Start Date End Date Sophie Fajardo ANP [address] [place] [phone] PCP - General Family Medicine 05/10/23
--- OUTSIDE RECORDS SUMMARY | 2024-04-30 15:43 | XMS_ITS | Encounter Summary ---
Author Organization [employer] Address [address] [facility] 7t [place] [address] Care Team Providers Care Clubhouse Manager Name Role Phone Sophie Fajardo Primary Care Provider [phone] Reason for Visit * Reason Comments Med Refill Encounter Details Date Type Department Care Team ([facility] st Contact Info) Description 10/29/2023 Refill [facility] [address] [place], [place] [phone] Sophie Fajardo ANP [address] [place], [place] [phone] control counseling Social History Tobacco Use Types Packs/Day Years [...] Recorded Patient Health Questionnaire-2 Score 0 06/28/2023 Comments No Sex and Gender Information Value Date Recorded Sex Assigned at Female 01/30/2022 10:38 AM EDT Legal Sex Female 10:38 AM EDT Gender Identity Female 01/30/2022 10:38 AM EDT Sexual Orientation Straight 01/30/2022 10 :38 AM EDT documented as of this encounter Plan of Treatment Not on file documented as of this encounter Visit Diagnoses Diagnosis control counseling documented in this encounter Additional Health Concerns Assessment Noted Time PHQ-9 Depression Total Score: 0 06/28/19 24 1:24 PM EDT documented as of this encounter Care Teams Clubhouse Manager Relationship Specialty Start Date End Date Sophie Fajardo ANP [address] [place] [phone] PCP - General Family Medicine 05/10/23 documented as of this encounter
--- OUTSIDE RECORDS SUMMARY | 2024-04-30 15:43 | XMS_ITS | Clinical Summary ---
Author Organization [employer] [facility] Address [address] [place] [address] Care Team Providers Care Cnc Grinder Name Role Phone Unavailable Primary Care Provider Unavailabl e Social History Tobacco Use Types Packs/Day Years Used Date Smoking Tobacco: Never Assessed Sex and Gender Information Value Date Recorded Sex Assigned at Not on file Gender Identity Not on file Sexual Orientation Not on file Plan of Treatment Health Maintenance Due Date Last Done Comments DTaP,Tdap,and Td Vaccines (1 - Tdap) 07/28/2010 Hepatitis B Vaccines (1 of 3 - 19+ 3-dose series) 07/28/2010 Cervical Cancer Screening: P ap Smear 07/28/2012 COVID-19 Vaccine (2023-2 5 season) 2023 Influenza Vaccine (#1) 2023 HIB Vaccines Aged Out No longer eligi [...] on patient's age to complete this topic MMR Vaccines Aged Out No longer eligi ble based on patient's age to complete this topic Meningococcal ACWY Vaccine Aged Out N o longer eligible based on patient's age to complete this topic Pneumococcal Vaccine: Pediat rics (0 to 5 Years) and At-Risk Patients (6 to 64 Years) Aged Out No longer eligible b ased on patient's age to complete this topic RSV Immunization Patients Un yandy 20 months Aged Out No longer eligible b ased on patient's age to complete this topic Varicella Vaccines Aged Out No longer eligible based on patient's age to complete this topic
[2024-04-30 16:17] LABS: MANUAL DIFF FLAG NO
[2024-04-30 16:46] LABS: Basophils Percent Auto 0.5 % (0-2); Eosinophils Absolute Auto 0.3 X10*3/uL (0.0-0.4); Eosinophils Percent Auto 4.3 % (0-4); Hematocrit 35.4 % (37.0-47.0); Hemoglobin 12.1 g/dl (12.0-16.0); Imm Gran Abs Auto 0.02 X10*3/uL (0.00-0.03); Imm Gran Pct Auto 0.3 % (0.0-0.4); Lymphocytes Absolute Auto 3.3 X10*3/uL (1.2-4.9); Mean Corpuscular HGB Conc 34.2 g/dl (31.0-35.0); Mean Corpuscular Hemoglobin 30.3 pg (27.0-33.0); Mean Corpuscular Volume 88.5 fL (80.0-98.0); Mean Platelet Volume 9.7 fL (9.4-12.3); Monocytes Absolute Auto 0.6 X10*3/uL (0.1-1.2); Monocytes Percent Auto 8.1 % (2-11); Neutrophils Absolute Auto 3.5 x10*3/uL (2.0-8.3); Neutrophils Percent Auto 44.8 % (45-73); Platelet Count 213 X10*3/uL (160-400); Red Cell Distribution Width 13.1 % (11.0-16.0); White Blood Count 7.9 X10*3/uL (4.8-10.8)
[2024-04-30 17:18] LABS: TSH reflex Free T4 1.61 uIU/mL (0.32-4.0)
[2024-05-01 05:58] LABS: HIV AB/AG Nonreactive (Nonreactive); HIV Num 1 0.05 S/CO (0.00-0.99); ~HepC Num1 0.21 S/CO (0.00-0.79); ~Hepatitis C Antibody Nonreactive (Nonreactive)
[2024-05-02 02:44] LABS: Varicella IgG Antibody 1.86 S/CO
[2024-05-02 06:48] LABS: RPR Rapid Plasma Reagin NON-REACTIVE (NON-REACTIVE)
[2024-05-03 15:44] LABS: TS Negative Control Passed; TS Panel A 0; TS Panel B 0; TS Positive Control Passed; TSpotTB Negative (Negative)
== END 2024-04-30 13:30 | disposition home or self-care (01) ==
LOC: HO.HHCL 13:29
PROVIDERS: Visit Provider Nurse Practitioner Primary Care
DX: Z11.1 Encounter for screening for respiratory tuberculosis (principal); Z01.84 Encounter for antibody response examination; Z20.2 Contact with and (suspected) exposure to infections with a predominantly sexual mode of transmission
CPT/HCPCS: 36415; 84443; 85025; 86481; 86592; 86787; 86803; 87389

== ENCOUNTER 2024-07-08 18:53 | Outpatient (REF) | payer BC, SELFPAY ==
--- OUTSIDE RECORDS SUMMARY | 2024-07-08 19:28 | XMS_ITS | Encounter Summary ---
Author Organization [employer] Address [address] [facility] 7t [place] [address] Care Team Providers Care Business Law Teacher Name Role Phone Sophie Fajardo Primary Care Provider [phone] Reason for Visit * Reason Comments Med Refill Encounter Details Date Type Department Care Team ([facility] st Contact Info) Description 01/17/2023 Refill [facility] [address] [place] [address] PindallMari FNP [address] [place] [address] Social History Tobacco Use Types Packs/Day Years [...] on filedocumented in this encounter Care Teams Business Law Teacher Relationship Specialty Start Date End Date Sophie Fajardo ANP [address] [place] [address] PCP - General Family Medicine 05/10/23 documented as of this encounter
--- OUTSIDE RECORDS SUMMARY | 2024-07-08 19:28 | XMS_ITS | Encounter Summary ---
Author Organization [employer] Address [address] [facility] [address] 7[address] [place] [address] Care Team Providers Care Chemical Dependency Therapist Name Role Phone Tana Sophie GONZALEZ Primary Care Provider [phone] Reason for Visit * Reason Comments Abdominal Pain Encounter Details Date Type Department Care Team ([facility] st Contact Info) Description 07/08/2024 9:00 AM EDT Office Visit [facility] [address] [place], [place] [phone] Ward Ho MD [address] [place], [place] [phone] RLQ abdominal pain (Primary Dx); Elevated blood pressure reading in office without diagnosis of hypertension Social History Tobacco Use Types Packs/Day Years [...] AM EDT documented as of this encounter Last Filed Vital Signs Vital Sign Reading Time Taken Comments Blood Pressure 157/87 07/08/2024 9:01 AM EDT Pulse 81 07/08/2024 9:01 AM EDT Temperature 37.3 ??C (99.2 ??F) 07/08/2024 9:01 AM ED T Respiratory Rate 18 07/08/2024 9:01 AM EDT Oxygen Saturation 98% 07/08/2024 9:01 AM EDT Inhaled Oxygen Concentration - - Weight 92.4 kg (203 lb 12.8 oz) 07/08/2024 9:01 AM EDT Height - - Body Mass Index 37.28 07/05/2023 10:28 AM EDT documented in this encounter Progress Notes * Ward Ho MD - 07/08/2024 9:00 AM EDT Subjective Patient ID: Barb Solano is a 33 y.o. female. HPI 3 days ago had onset of constant pain in right lower abd, worse with full bladder , laying on right side. + nausea, control room technician v/d. No fever, urinary sx. Had similar pain a long time ago , etiology unclear. Tried Tylenol without relief. No h/o abd surgery. Lives with son. LMP=09/2023 and again last week due to BCP . 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 Never smoked. Occasional EtOH. Patient Active Problem List Diagnosis Anxiety Polycystic ovary syndrome Lytic bone lesion of hip Epigastric pain The following portions of the chart were reviewed this encounter and updated as appropriate: Tobacco Allergies Meds Problems Med Hx Surg Hx Fam Hx Review of Systems Constitutional: Negative for fever. Respiratory: Negative for shortness of breath. Cardiovascular: Negative for chest pain. Gastrointestinal: Positive for abdominal pain and nausea. Negative for diarrhea and vomiting. Skin: Negative for rash. Neurological: Negative for headaches. Objective Physical Exam Constitutional: Appearance: Normal appearance. HENT: Nose: Nose normal. Mouth/Throat: Mouth: Mucous membranes are moist. Pharynx: Oropharynx is clear. Eyes: Conjunctiva/sclera: Conjunctivae normal. Pupils: Pupils are equal, round, and reactive to light. Cardiovascular: Rate and Rhythm: Normal rate and regular rhythm. Heart sounds: No murmur heard. Pulmonary: Effort: Pulmonary effort is normal. Breath sounds: Normal breath sounds. Abdominal: General: Abdomen is flat. Palpations: Abdomen is soft. Tenderness: There is abdominal tenderness (moserate RLQ). There is no right CVA tenderness or left CVA tenderness. Musculoskeletal: General: Normal range of motion. Cervical back: No tenderness. Skin: Findings: No rash. Neurological: Mental Status: She is alert. Gait: Gait is intact. Psychiatric: Mood and Affect: Mood normal. Behavior: Behavior normal. Procedures Assessment/Plan Diagnoses and all orders for this visit: RLQ abdominal pain UCG, U/a neg, self vaginal swab for BV panel, GC/CT is pending. Will call patient with results. Because of right lower quadrant tenderness, pain, and nausea, open he was referred to the ED now. - POCT urinalysis dipstick manually resulted - POCT , urine manually resulted - Bacterial Vaginosis Panel - Chlamydia/N. Gonorrhoeae RNA, TMA, Urogenitial Elevated blood pressure reading in office without diagnosis of hypertension Prescribed home BP monitor. Reviewed BP parameters, given written BP log that includes BP parameters, to keep daily. Call if BP readings are elevated. Other orders - Blood Pressure kit; 1 each 2 times daily. documented in this encounter Plan of Treatment Scheduled Orders Name Type Priority Associated Diagnoses Orde r Schedule Bacterial Vaginosis Panel Microbiology Routine RLQ abdominal pain Ordered: 07/08/2024 Chlamydia/N. Gonorrhoeae RNA, TMA, Urogenitial Microbiology Routine RLQ abdominal pain Ordered: 07/08/2024 documented as of this encounter Procedures Procedure Name Priority Date/Time Associated Diagnosis Comments POCT , URINE Routine 07/08/2024 9:19 AM EDT RLQ abdominal pain POCT URINALYSIS DIPSTICK Routine 07/08/2024 9:19 AM EDT RLQ abdominal pain documented in this encounter Results * POCT , urine manually resulted (07/08/2024 9:19 AM EDT) Preg Test, Ur Negative Negative, Indeterminate, None Detected, Invalid, Specimen unsatisfactory for evaluation, Weakly Positive Urine 07/08/2024 9:19 AM EDT us Ward Ho MD POINT OF CARE TEST ENTER/EDIT OR DERABLES Final Result * POCT urinalysis dipstick manually resulted (07/08/2024 9:19 AM EDT) Color, UA Yellow Clarity, UA Clear Glucose, UA Negative Bilirubin, UA Negative Ketones, UA Negative Spec Grav, UA 1.010 Blood, UA Negative Negative, None Detected pH, UA 6.0 Protein, UA Negative Urobilinogen, UA 0.2 Leukocytes, UA Negative Negative, Rare, Trace Nitrite, UA Negative Negative, None Detected Urine 07/08/2024 9:19 AM EDT us Ward Ho MD POINT OF CARE TEST ENTER/EDIT OR DERABLES Final Result documented in this encounter Visit Diagnoses Diagnosis RLQ abdominal pain- Primary Abdominal pain, right lower quadrant Elevated blood pressure reading in office without diagnosis of hypertension documented in this encounter Additional Health Concerns Assessment Noted Time PHQ-9 Depression Total Score: 0 06/28/19 24 1:24 PM EDT documented as of this encounter Care Teams Chemical Dependency Therapist Relationship Specialty Start Date End Date Sophie Fajardo ANP [address] [place] [phone] PCP - General Family Medicine 05/10/23 documented as of this encounter
--- OUTSIDE RECORDS SUMMARY | 2024-07-08 19:28 | XMS_ITS | Encounter Summary ---
Author Organization [employer] Address [address] [place] [address] [place] [address] Care Team Providers Care Bus Inspector Name Role Phone Heather Mello Primary Care Provider [phone] Sophie Fajardo Primary Care Provider [phone] Reason for Visit * Reason Comments Med Refill Encounter Details Date Type Department Care Team (Late st Contact Info) Description 08/10/2022 Refill [facility] [address] [place] [address] Mari Fragoso FNP [address] [place], [place] [phone] Social History Tobacco Use Types Packs/Day Years [...] on filedocumented in this encounter Care Teams Bus Inspector Relationship Specialty Start Date End Date Heather Mello FNP [address] [place], [place] [phone] PCP - General Family Medicine 11/24/21 12/27/22 Sophie Fajardo ANP [address] [place] [address] [phone] PCP - General Family Medicine 05/10/23 documented as of this encounter
--- OUTSIDE RECORDS SUMMARY | 2024-07-08 19:28 | XMS_ITS | Clinical Summary ---
Author Organization [employer] [facility] ity Address [address] [place] [address] Care Team Providers Care Director Religious Education Name Role Phone Unavailable Primary Care Provider Unavailabl e Social History Tobacco Use Types Packs/Day Years Used Date Smoking Tobacco: Never Assessed Comments Unknown Sex and Gender Information Value Date Recorded Sex Assigned at Not on file Legal Sex Female 8:12 PM EST Gender Identity Not on file Sexual Orientation Not on file Plan of Treatment Health Maintenance Due Date Last Done Comments DTaP,Tdap,and Td Vaccines (1 - Tdap) 07/28/2010 Hepatitis B Vaccines (1 of 3 - 19+ 3-dose series) 07/28/2010 Cervical Cancer Screening: P ap Smear 07/28/2012 COVID-19 Vaccine ( - 2023-2 5 season) 2023 Influenza Vaccine (Season Ended) 2024 HIB Vaccines Aged Out No longer eligi [...] patient's age to complete this topic Meningococcal B Vaccine Aged Out No l onger eligible based on patient's age to complete [...]
--- OUTSIDE RECORDS SUMMARY | 2024-07-08 19:28 | XMS_ITS | Clinical Summary ---
Author Organization [employer] Address [address] [facility] 7t [place] [address] Care Team Providers Care Boom Storage Name Role Phone Sophie Fajardo CARLOS Primary Care Provider [phone] Allergies Active Allergy Reactions Criticality Noted Date [...] THE MORNING 84 tablet 3 4 Active sertraline (Zoloft) 50 MG tablet Take 1 tablet (50 mg) by mouth Once per day. 30 tablet 2 5 08/19/19 25 Active Blood Pressure kit 1 each 2 times daily. 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 Saw [facility] 09/2023 PPI did not help, h. Pylori breath test negative Anxiety 06/29/2023 Polycystic ovary syndrome 06/29/2023 Encounters Date Type Department Care Team Description 07/08/2024 9:00 AM EDT Office Visit [facility] [address] [place] [address] Ward Ho MD RLQ abdominal pain (Primary Dx); Elevated blood pressure reading in office without diagnosis of hypertension 05/27/2024 Refill [facility] [address] [place] [address] Name, MD Jairo 05/20/2024 Refill [facility] [address] [place] [address] Name, MD Jairo 05/20/2024 Refill [facility] [address] [place] [address] Kamla De León, RN 05/16/2024 Refill [facility] [address] [place] [address] Sophie Fajardo ANP 04/30/2024 Orders Only [facility] [address] [place] [address] Sophie Fajardo ANP 04/29/2024 Telephone [facility] [address] [place] [address] Kamla De León, RN Paperwork/Forms from Last [...] 12.8 oz) 07/08/2024 9:01 AM EDT Height 157.5 cm (5' 2 ) 07/05/2023 10:2 8 AM EDT Body Mass Index 37.28 07/05/2023 10:28 AM EDT Plan of Treatment Health Maintenance Due Date Last Done Comments Alcohol/Substance Use Screening 2003 Family Planning (PISQ) 07/28/2006 Pap Smear 07/28/2012 Cervical Cancer Screening 07/28/2021 HPV/Cotest 07/28/2021 Depression Screening 06/27/2024 06/28/2023, 06/28/19 SDOH Screening 06/27/2024 06/28/2023 Tobacco Screening 07/08/2025 07/08/2024 Lipid Panel 11/12/2025 11/12/2020 DTaP/Tdap/Td Vaccines (4 - Td or Tdap) 06/19/2032 06/19/2022, 06/20/2019, 07/09/2010 Zoster Vaccines (1 of 2) 07/28/2041 RSV Patients and Patients Aged 60 years or older (1 - 1-dose 75+ series) 07/28/2066 Hepatitis B Vaccines Completed 12/31/2019, 07/28/2019, 06/20/2019, Additional history exists Influenza Vaccine Completed 01/25/2024, , 12/28/2021, Additional history exists COVID-19 Vaccine Completed 04/27/2024, , 08/07/2020, Additional history exists HIV Screening Completed 04/30/2024, 06/01, 11/12/2020 Hepatitis C Screening Completed 04/30/2024, 024 HIB Vaccines Aged Out No longer eligi [...] 07/08/2024 9:19 AM EDT RLQ abdominal pain T-SPOT(R).TB Routine 04/30/2024 1:31 PM EST VARICELLA ZOSTER ANTIBODY, IGG Routine 04/30/2024 1:31 PM EST HEPATITIS C AB W/REFL TO HCV RNA, QN, PCR Routine 04/30/2024 1:31 PM EST Healthcare maintenance Routine screening for STI (sexually transmitted infection) RPR (MONITOR) W/REFL TITER Routine 04/30/2024 1:31 PM EST Healthcare maintenance Routine screening for STI (sexually transmitted infection) HIV 1/2 ANTIGEN/ANTIBODY, FOURTH GENERATION W/RFL Routine 04/30/2024 1:31 PM EST Healthcare maintenance Routine screening for STI (sexually transmitted infection) CBC WITH AUTO DIFFERENTIAL Routine 04/30/2024 1:31 PM EST Healthcare maintenance TSH W/REFLEX TO FT4 Routine 04/30/2024 1 :31 PM EST Healthcare maintenance LIPID PANEL, STANDARD Routine 11/12/2020 10:39 AM EDT from Last 3 Months or Most Recently Relevant to Health Maintenance Results * POCT , urine manually resulted [...] TEST ENTER/EDIT OR DERABLES Final Result * T-SPOT??.TB (04/30/2024 1:31 PM EST) T Spot TB Negative Negative [facility] Comment:A negative test resu lt does not exclude the possibilityof exposure to or infection with Mycobacteriumtuberculosis (M. tuberculosis). Patients with recentexposure to TB infected individuals exhibiting anegative T-SPOT.TB result should be considered forretesting within 6 weeks or if other relevant clinicalsymptoms indicate. Results from T-SPOT.TB testing mustbe used in conjunction with each individual'sepidemiological history, current medical status,and results of other diagnostic evaluations.The T-SPOT.TB test is qualitative and results arereported as positive, borderline, or negative, giventhat the test controls perform as expected. In linewith the Centers for Disease Control and Prevention's2010 recommendation to report quantitative measurementsalongside the qualitative result, the laboratoryprovides spot counts for informational purposes only.The T-SPOT.TB test should not be interpreted as aquantitative test. TS PANEL A 0 [facility] TS PANEL B 0 [facility] Negative Control Passed [facility] Positive Control Passed [facility] Comment:For additional infor ashly, please refer tohttp://education.zeeWAVES/faq/WNH821(This link is being provided for informational/educational purposes only.)THIS TEST WAS PERFORMED AT:[employer] [id number] [place] [id number] GAVIRIA MD,PHD 04/30/2024 1:31 PM EST 04/30/2024 4:11 PM EST Sophie Fajardo [facility] BLOOD ORDERABLES Final Resul t Performing Organization Address [facility] Co de Phone Number [facility] [address] [place] [phone] * TSH W/Reflex to FT4 (04/30/2024 1:31 PM EST) Pathologist [facility] TSH reflex Free T4 1.61 0.32 - 4.0 uIU/mL [facility] Blood Venous blood specimen / Unknown 04/30/2024 1:31 PM EST 04/30/2024 4:11 PM EST Sophie Fajardo [facility] BLOOD ORDERABLES Final Resul t Performing Organization Address [facility] Co de Phone Number [facility] [address] [place] [phone] * (ABNORMAL) CBC auto differential (04/30/2024 1:31 PM EST) White Blood Count 7.9 4.8 - 10.8 X10*3/uL [facility] Red Blood Count 4.00(L) 4.20 - 5.50 X10*6/uL [facility] Hemoglobin 12.1 12.0 - 16.0 g/dl [facility] Hematocrit 35.4(L) 37.0 - 47.0 % [facility] Mean Corpuscular Volume 88.5 80.0 - 98.0 fL [facility] Mean Corpuscular Hemoglobin 30.3 27.0 - 33.0 pg [facility] Mean Corpuscular HGB Conc 34.2 31.0 - 35.0 g/dl [facility] Red Cell Distribution Width 13.1 11.0 - 16.0 % [facility] Platelet Count 213 160 - 400 X10*3/uL [facility] Mean Platelet Volume 9.7 9.4 - 12.3 fL [facility] Neutrophils Percent Auto 44.8(L) 45 - 73 % [facility] Imm Gran Pct Auto 0.3 0.0 - 0.4 % [facility] Lymphocytes Percent Auto 42.0(H) 20 - 40 % [facility] Monocytes Percent Auto 8.1 2 - 11 % [facility] Eosinophils Percent Auto 4.3(H) 0 - 4 % [facility] Basophils Percent Auto 0.5 0 - 2 % [facility] NRBC Pct Auto 0.0 0.0 - 0.2 /100WBC [facility] Neutrophils Absolute Auto 3.5 2.0 - 8.3 x10*3/uL [facility] Imm Gran Abs Auto 0.02 0.00 - 0.03 X10*3/uL [facility] Lymphocytes Absolute Auto 3.3 1.2 - 4.9 X10*3/uL [facility] Monocytes Absolute Auto 0.6 0.1 - 1.2 X10*3/uL [facility] Eosinophils Absolute Auto 0.3 0.0 - 0.4 X10*3/uL [facility] Basophils Absolute Auto 0.0 0.0 - 0.2 X10*3/uL [facility] NRBC Abs Auto 0.000 0.0 - 0.012 X10*3/uL [facility] Blood Venous blood specimen / Unknown 04/30/2024 1:31 PM EST 04/30/2024 4:11 PM EST Sophie Fajardo [facility] BLOOD ORDERABLES Final Resul t Performing Organization Address [facility] Co de Phone Number [facility] [address] [place] [phone] * Hepatitis C Antibody with Reflex to HCV, RNA, Quantitative, Real-Time PCR (04/30/2024 1:31 PM EST) Hepatitis C Antibody Nonreactive Nonreactive [facility] Comment:Antibodies to HCV no t detected; does not exclude early acuteHCV infection. Blood Venous blood specimen / Unknown 04/30/2024 1:31 PM EST 04/30/2024 4:22 PM EST Sophie GONZALEZ LAB BLOOD ORDERABLES Final Resul t Performing Organization Address [facility] Phone Number [facility] [address] [place] [phone] * RPR (Monitor) with Reflex to??Titer (04/30/2024 1:31 PM EST) RPR (Monitor) w/Refl Titer NON-REACTI VE NON-REACT YVES [facility] Comment:THIS TEST WAS PERFOR MED AT:[facility] [place] [id number] PORTER MD Rapid Plasma Reagin Ab Titer TNP [facility] Blood Venous blood specimen / Unknown 04/30/2024 1:31 PM EST 04/30/2024 4:22 PM EST us Sophie GONZALEZ LAB BLOOD ORDERABLES Final Resul t Performing Organization Address [facility] Co de Phone Number [facility] [address] [place] [phone] * HIV-1/2 Antigen and Antibodies, Fourth Generation, with Reflexes (04/30/2024 1:31 PM EST) HIV AB/AG Nonreactive Nonreactive [facility] Comment:HIV-1 p24 Ag and/or HIV-1/HIV-2 Ab not detected.A test result that is nonreactive does not exclude thepossibility of exposure to or infection with HIV-1 and/orHIV-2. Nonreactive results in this assay for individualswith prior exposure to HIV-1 and/or HIV-2 may be due toantigen and antibody levels that are below the limit ofdetection of this assay.The [employer] HIV Ag/Ab Combo assay result andsupplemental assay results should be interpreted inconjunction with the patient's clinical presentation,history and other laboratory results. If the results areinconsistent with clinical evidence, additional testing issuggested to confirm the result. Blood Venous blood specimen / Unknown 04/30/2024 1:31 PM EST 04/30/2024 4:22 PM EST [facility] LAB BLOOD ORDERABLES Final Resul t [facility] [address] [place] [phone] * Varicella zoster antibody, IgG (04/30/2024 1:31 PM EST) Varicella IgG Antibody 1.86 S/CO [facility] Comment:Signal to Cut-off S/ CO Interpretation --------- <1.00 Negative - Antibody not detected > or = 1.00 Positive - Antibody detected A positive result indicates that the patient has antibody to VZV but does not differentiate between an active or past infection. The clinical diagnosis must be interpreted in conjunction with the clinical signs and symptoms of the patient. This assay reliably measures immunity due to previous infection but may not be sensitive enough to detect antibodies induced by vaccination. Thus, a negative result in a vaccinated individual does not necessarily indicate susceptibility to VZV infection. A more sensitive test for vaccination-induced immunity is Varicella Zoster Virus Antibody Immunity Screen, ACIF.THIS TEST WAS PERFORMED AT:[facility] [place] [id number] PORTER MD 04/30/2024 1:31 PM EST 04/30/2024 4:22 PM EST us Sophie GONZALEZ LAB BLOOD ORDERABLES Final Resul t Performing Organization Address [facility]/ZIP Co de Phone Number [facility] [address] [place] [phone] * (ABNORMAL) LIPID PANEL, STANDARD (11/12/2020 10:39 AM EDT) Chol/HDLC Ratio 3.3 <5.0 (calc) [facility] [...] ?? Layo MORIN et al. MARLON. 2013;310(19): 4993-3848 ?? (http://education.[employer]/faq/MPU126) Non-HDL Cholesterol 127 <130 mg/dL (calc) [facility] Comment: For patients with diabetes plus 1 major ASCVD risk ?? factor, treating to a non-HDL-C goal of <100 mg/dL ?? (LDL-C of <70 mg/dL) is considered a therapeutic ?? option. Triglycerides 100 <150 mg/dL [facility] 11/12/2020 10:3 9 AM EDT us Viri PAGE[facility] LAB BLOOD ORDERABLES Final Res ult Performing Organization Address [facility] Co de Phone Number [facility] [address] [place] [address], from Last 3 Months or Most Recently Relevant to Health Maintenance Insurance [employer] HMO Care Teams [employer] Relationship Specialty Start Date End Date Sophie Fajardo ANP [address] [place] [phone] PCP - General Family Medicine 05/10/23
--- OUTSIDE RECORDS SUMMARY | 2024-07-08 19:28 | XMS_ITS | Encounter Summary ---
Author Organization [employer] Address [address] [place] [address] [place] [address] Care Team Providers Care Carpet Cleaning Technician Name Role Phone Heather Mello Primary Care Provider [phone] Sophie Fajardo Primary Care Provider [phone] Reason for Visit * Reason Comments Med Refill Encounter Details Date Type Department Care Team (Late st Contact Info) Description 09/29/2022 Refill [facility] [address] [place] [address] Mari Fragoso FNP [address] [place], [place] [phone] Social History Tobacco Use Types Packs/Day Years [...] on filedocumented in this encounter Care Teams Carpet Cleaning Technician Relationship Specialty Start Date End Date Heather Mello FNP [address] [place], [place] [phone] PCP - General Family Medicine 11/24/21 12/27/22 Sophie Fajardo ANP [address] [place] [address] [phone] PCP - General Family Medicine 05/10/23 documented as of this encounter
--- OUTSIDE RECORDS SUMMARY | 2024-07-08 19:28 | XMS_ITS | Encounter Summary ---
Author Organization [employer] Address [address] [address] [facility] [address] 7[address] [place] [address] Care Team Providers Care Bar Welder Name Role Phone Sophie Fajardo Primary Care Provider [phone] Reason for Visit * Reason Comments Med Change Request Encounter Details Date Type Department Care Team ([facility] Contact Info) Description 05/27/[address] [facility] [address] [place] [address] Name, MD Jairo [address] [place], [place] [phone] Social History Tobacco Use Types Packs/Day Years [...] Diagnoses Not on filedocumented in this encounter Additional Health Concerns Assessment Noted Time PHQ-9 Depression Total Score: 0 06/28/19 24 1:24 PM EDT documented as of this encounter Care Teams Bar Welder Relationship Specialty Start Date End Date Sophie Fajardo ANP [address] [place] [address] PCP - General Family Medicine 05/10/23 documented as of this encounter
--- OUTSIDE RECORDS SUMMARY | 2024-07-08 19:28 | XMS_ITS | Encounter Summary ---
Author Organization [employer] Address [address] [facility] 7t [place] [address] Care Team Providers Care Die Holder Name Role Phone Sophie Fajardo Primary Care Provider [phone] Reason for Visit * Reason Onset Date Comments Med Refill 05/16/2024 Encounter Details Date Type Department Care Team ([facility] st Contact Info) Description 05/16/2024 Refill [facility] [address] [place], [place] [phone] Sophie Fajardo ANP [address] [place] [address] Social History Tobacco Use Types Packs/Day Years [...] documented as of this encounter Care Teams Die Holder Relationship Specialty Start Date End Date Sophie Fajardo ANP [address] [place] [address] PCP - General Family Medicine 05/10/23 documented as of this encounter
--- OUTSIDE RECORDS SUMMARY | 2024-07-08 19:28 | XMS_ITS | Encounter Summary ---
Author Organization [employer] Address [address] [facility] 7t [place] [address] Care Team Providers Care Professional Golf Tournament Player Name Role Phone Sophie Fajardo Primary Care Provider [phone] Reason for Visit * Reason Comments Med Refill Encounter Details Date Type Department Care Team ([facility] st Contact Info) Description 10/29/[address] [facility] [address] [place], [place] [phone] Sophie Fajardo ANP [address] [place], [place] [phone] control counseling Social History Tobacco Use Types [...] documented as of this encounter Care Teams Professional Golf Tournament Player Relationship Specialty Start Date End Date Sophie Fajardo ANP [address] [place] [phone] PCP - General Family Medicine 05/10/23 documented as of this encounter
[2024-07-09 07:23] LABS: CT PCR NOT DETECTED (Not Detect.); NG PCR NOT DETECTED (Not Detect.)
[2024-07-09 09:04] LABS: Bacterial Vaginosis PCR NEGATIVE (Negative); Candida Group PCR NOT DETECTED (Not Detect); Candida glab krusei PCR NOT DETECTED (Not Detect); Trichomonas vaginalis PCR NOT DETECTED (Not Detect)
== END 2024-07-08 18:54 | disposition home or self-care (01) ==
LOC: HO.HHCLNP 18:53
PROVIDERS: Visit Provider Emergency Medicine
DX: R10.31 Right lower quadrant pain (principal)
CPT/HCPCS: 81515; 87491; 87591

== ENCOUNTER 2024-08-02 14:52 | Outpatient (REF) | payer BC, SELFPAY ==
[2024-08-03 11:42] LABS: Bacterial Vaginosis PCR NEGATIVE (Negative); Candida Group PCR NOT DETECTED (Not Detect); Candida glab krusei PCR NOT DETECTED (Not Detect); Trichomonas vaginalis PCR NOT DETECTED (Not Detect)
[2024-08-03 12:18] LABS: CT PCR NOT DETECTED (Not Detect.); NG PCR NOT DETECTED (Not Detect.)
== END 2024-08-02 14:53 | disposition home or self-care (01) ==
LOC: HO.LNP 14:52
PROVIDERS: Visit Provider Internal Medicine Geriatric Medicine
DX: N89.8 Other specified noninflammatory disorders of vagina (principal)
CPT/HCPCS: 81515; 87491; 87591

== ENCOUNTER 2024-12-12 14:17 | Outpatient (REF) | payer BC, SELFPAY ==
--- OUTSIDE RECORDS SUMMARY | 2024-12-12 09:45 | XMS_ITS | Encounter Summary ---
Author Organization [employer] Address [address] [facility] 7t [place] [address] Care Team Providers Care Donor Relations Officer Name Role Phone Sophie Fajardo Primary Care Provider [phone] Reason for Visit * Reason Comments Annual Exam Encounter Details Date Type Department Care Team ([facility] st Contact Info) Description 12/12/2024 9:45 AM EDT Office Visit [facility] MEDICINE [address] [place], [place] [phone] Sophie Fajardo ANP [address] [place], [place] [phone] Healthcare maintenance (Primary Dx); Routine screening for STI (sexually transmitted infection); Epigastric pain Social History Tobacco Use Types Packs/Day Years Used Date Smoking Tobacco: Never Smokeless Tobacco: Never Tobacco Cessation:Counseling Given: Not Answered Alcohol Use Standard Drinks/Week Comments Yes 0 (1 standard drink = 0.6 oz pur e alcohol) occasionally Depression Answer Date Recorded Patient Health Questionnaire-9 Score 2 12/12/2024 Patient Health Questionnaire-9 Score 2 12/12/2024 Last PHQ-9: Questionnaire Data Not on file 0 12/12/2024 Housing Stability Answer Date Recorded What is your housing situation today? I have derik moncada 12/12/[address] you li ve. Do you have problems with any of the following? None of the above 12/12/2024 Food Insecurity Answer Date Recorded Within the past 12 months, y ou worried that your food would run out before you got money to buy more: Never True 12/12/2024 Within the past 12 months,th e food you bought just didn't last and you didn't have enough money to get more: Never True 03/2025 Transportation Answer Date Recorded In the past 12 months, has l ack of transportation kept you from medical appts, meetings, work or from getting things needed for daily living? No 12/12/2024 Utilities Answer Date Recorded In the past 12 months, has t he electric, gas, oil or water company threatened to shut off services in your home? No 12/12/2024 Depression Answer Date Recorded Patient Health Questionnaire-2 Score 0 12/12/2024 Internet Access Answer Date Recorded Internet Access Q1 Yes 12/12/2024 Internet Access Q2 Not on file 12/12/2024 Comments No Sex and Gender Information Value Date Recorded Sex Assigned at Female 01/30/2022 10:38 AM EDT Legal Sex Female 10:38 AM EDT Gender Identity Female 01/30/2022 10:38 AM EDT Sexual Orientation Straight 01/30/2022 10 :38 AM EDT documented as of this encounter Last Filed Vital Signs Vital Sign Reading Time Taken Comments Blood Pressure 120/80 12/12/2024 9:44 AM EDT Pulse 80 12/12/2024 9:44 AM EDT Temperature 36.5 C (97.7 F) 12/12/2024 9:44 AM EDT Respiratory Rate 20 12/12/2024 9:44 AM EDT Oxygen Saturation - - Inhaled Oxygen Concentration - - Weight 90 kg (198 lb 6 oz) 12/12/2024 9:44 AM ED T Height 159.4 cm (5' 2.75 ) 12/12/2024 9:44 AM ED T Body Mass Index 35.42 12/12/2024 9:44 AM EDT documented in this encounter Functional Status * Over the past 2 weeks, how often have you been bothered by any of the following problems? Question Answer Date of Assessment Author Patient Health Questionnaire -2 Score 0 12/12/2024 9:45 AM EDT Kyrie Gonsalves MA * Little interest or pleasure in doing things Answer Date of Assessment Author Not at all 12/12/2024 9:45 AM EDT Elaine Gonsalves MA * Feeling down, depressed, or hopeless Answer Date of Assessment Author Not at all 12/12/2024 9:45 AM EDT Elaine Gonsalves MA * Trouble falling or staying asleep, or sleeping too much Answer Date of Assessment Author Several days 12/12/2024 9:45 AM Elaine Campbell MA * Feeling tired or having little energy Answer Date of Assessment Author Several days 12/12/2024 9:45 AM Elaine Campbell MA * Poor appetite or overeating Answer Date of Assessment Author Not at all 12/12/2024 9:45 AM Elaine Campbell MA * Feeling bad about yourself - or that you are a failure or have let yourself or your family down Answer Date of Assessment Author Not at all 12/12/2024 9:45 AM Elaine Campbell MA * Trouble concentrating on things, such as reading the newspaper or watching television Answer Date of Assessment Author Not at all 12/12/2024 9:45 AM Elaine Campbell MA * Moving or speaking so slowly that other people could have noticed? Or the opposite - being so fidgety or restless that you have been moving around a lot more than usual. Answer Date of Assessment Author Not at all 12/12/2024 9:45 AM Elaine Campbell MA * Thoughts that you would be better off or hurting yourself in some way Answer Date of Assessment Author Not at all 12/12/2024 9:45 AM Elaine Campbell MA * Patient Health Questionnaire-9 Score Answer Date of Assessment Author 2 12/12/2024 9:45 AM Elaine Campbell MA * Over the last 2 weeks, how often have you been bothered by any of the following problems? Question Answer Date of Assessment Author Feeling nervous, anxious, or on edge 1 12/12/2024 9:46 AM Kyrie Campbell MA Not being able to stop or co ntrol worrying 0 12/12/2024 9:46 AM Kyrie Campbell MA Worrying too much about diff erent things 0 12/12/2024 9:46 AM ELIAZART Kyrie Gonsalves MA Trouble relaxing 0 12/12/2024 9:46 AM ELIAZARKyrie Beasley MA Being so restless that it is hard to sit still 0 12/12/2024 9:46 AM EDT Kyrie Gonsalves MA Becoming easily annoyed or irritable 0 12/12/2024 9:46 AM EDT Kyrie Gonsalves MA Feeling afraid as if somethi ng awful might happen 0 12/12/2024 9:46 AM EDT Kyrie Gonsalves MA NIURKA-7 Total Score 1 12/12/2024 9:46 AM EDT Kyrie Gonsalves MA documented as of this encounter Progress Notes * CARLOS Brady - 12/12/2024 9:45 AM EDT SUBJECTIVE: Barb Solano is a 34 y.o. year old female who presents for routine physical exam. Denies recent illness, injury, or hospitalization. PMH PCOS, anxiety Acute Concerns: RLQ pain has resolved, she thinks was r/t GLP1 she was taking from [facility]. She has seen GI who advised her could have also been cannabis strain she was using. She has since stopped smoking MJ. Trying to eat healthy and lose weight naturally. Exercising here and there. Thinks she is due for pap. She thinks she got HPV vaccine when she was younger. BMI Readings from Last 3 Encounters: 12/12/24 35.42 kg/m?? 08/02/24 36.95 kg/m?? 07/08/24 37.28 kg/m?? 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 Non-smoker Would like STI testing BCM OCP, happy w/ method, also helps w/ menses control, otherwise has heavy menses Social History Social History Narrative Not on file Patient Active Problem List Diagnosis Anxiety Polycystic ovary syndrome Lytic bone lesion of hip Epigastric pain History reviewed. No pertinent surgical history. No family history on file. Review of Systems Constitutional: Negative for chills and fever. HENT: Negative for sore throat. Respiratory: Negative for cough and shortness of breath. Cardiovascular: Negative for chest pain. Gastrointestinal: Negative for constipation and diarrhea. Endocrine: Negative for polydipsia, polyphagia and polyuria. Genitourinary: Negative for dysuria. Musculoskeletal: Negative for arthralgias. Psychiatric/Behavioral: Negative for sleep disturbance. OBJECTIVE: Vitals: 12/12/24 0944 BP: 120/80 BP Location: Right arm Patient Position: Sitting BP Cuff Size: Large adult Pulse: 80 Resp: 20 Temp: 97.7 ??F (36.5 ??C) TempSrc: Oral Weight: 198 lb 6 oz (90 kg) Height: 5' 2.75 (1.594 m) Physical Exam Vitals reviewed. Constitutional: Appearance: Normal appearance. HENT: Head: Normocephalic and atraumatic. Right Ear: Tympanic membrane and ear canal normal. Left Ear: Tympanic membrane and ear canal normal. Eyes: General: No scleral icterus. Extraocular Movements: Extraocular movements intact. Pupils: Pupils are equal, round, and reactive to light. Cardiovascular: Rate and Rhythm: Normal rate and regular rhythm. Heart sounds: Normal heart sounds. No murmur heard. Pulmonary: Effort: Pulmonary effort is normal. Breath sounds: Normal breath sounds. No wheezing. Musculoskeletal: Right lower leg: No edema. Left lower leg: No edema. Lymphadenopathy: Cervical: No cervical adenopathy. Skin: General: Skin is warm and dry. Neurological: Mental Status: She is alert and oriented to person, place, and time. Psychiatric: Mood and Affect: Mood normal. ASSESSMENT/PLAN Barb was seen today for annual exam. Diagnoses and all orders for this visit: Healthcare maintenance (Primary) Pap to be scheduled Encouraged to get IZ at pharmacy, we do not yet have flu/COVID in stock Reports she got HPV vaccines when she was younger, she will try to look for record Routine screening for STI (sexually transmitted infection) - Hepatitis C Antibody with Reflex to HCV, RNA, Quantitative, Real-Time PCR; Future - HIV-1/2 Antigen and Antibodies, Fourth Generation, with Reflexes; Future - Syphilis Screen; Future - Chlamydia/N. Gonorrhoeae RNA, TMA, Vagina Epigastric pain resolved Follow Up: for pap when available Medications Ordered Prior to Encounter[1] [1] Current Outpatient Medications on File Prior to Visit Medication Sig Dispense Refill Blood Pressure kit 1 each 2 times daily. 1 kit 0 Cindy 3-0.02 MG tablet TAKE 1 TABLET BY MOUTH EVERY DAY IN THE MORNING 84 tablet 3 omeprazole (PriLOSEC) [address] capsule Take 1 capsule (20 mg) by mouth before breakfast and before evening meal. Do not crush or chew. 120 capsule 0 sertraline (Zoloft) 50 MG tablet TAKE 1 TABLET BY MOUTH EVERY DAY 90 tablet 0 [DISCONTINUED] drospirenone-ethinyl estradiol (Cindy) 3-0.02 MG tablet TAKE 1 TABLET BY MOUTH EVERYDAY IN THE MORNING 84 tablet 3 No current facility-administered medications on file prior to visit. documented in this encounter Plan of Treatment Scheduled Orders Name Type Priority Associated Diagnoses Orde r Schedule Hepatitis C Antibody with Reflex to HCV, RNA, Quantitative, Real-Time PCR Lab Routine Routine screening for STI (sexually transmitted infection) Expected: 12/12/2024 (Approximate), Expires: 12/12/2025 HIV-1/2 Antigen and Antibodies, Fourth Generation, with Reflexes Lab Routine Routine screening for STI (sexually transmitted infection) Expected: 12/12/2024 (Approximate), Expires: 12/12/2025 Syphilis Screen Lab Routine Routine screening for STI (sexually transmitted infection) Expected: 12/12/2024 (Approximate), Expires: 12/12/2025 documented as of this encounter Procedures Procedure Name Priority Date/Time Associated Diagnosis Comments CHLAMYDIA/N. GONORRHOEAE RNA, TMA, UROGENITAL Routine 12/12/2024 10:17 AM EDT Routine screening for STI (sexually transmitted infection) documented in this encounter Results * Chlamydia/N. Gonorrhoeae RNA, TMA, Vagina (12/12/2024 10:17 AM EDT) CT PCR NOT DETECTED Not Detect. [facility] Comment:A not detected test result does not exclude the possibilityof infection because test results can be affected byimproper specimen collection, concurrent antibiotic therapy,or the number of organisms in the specimen which may bebelow the sensitivity of the test. As with many diagnostictests, results from the Xpert CT/NG assay should beinterpreted in conjunction with other laboratory andclinical data available to the clinician.Xpert CT/NG performance has not been evaluated in patientsless than 14 years of age. The assay should not be used forthe evaluationof suspected sexual abuse or for other medico-legalindications. Additional testing is recommended in anycircumstance when false positive or false negative resultscould lead to adverse medical, social or psychologicalconsequences. NG PCR NOT DETECTED Not Detect. [facility] Comment:A not detected test result does not exclude the possibilityof infection because test results can be affected byimproper specimen collection, concurrent antibiotic therapy,or the number of organisms in the specimen which may bebelow the sensitivity of the test. As with many diagnostictests, results from the Xpert CT/NG assay should beinterpreted in conjunction with other laboratory andclinical data available to the clinician.Xpert CT/NG performance has not been evaluated in patientsless than 14 years of age. The assay should not be used forthe evaluationof suspected sexual abuse or for other medico-legalindications. Additional testing is recommended in anycircumstance when false positive or false negative resultscould lead to adverse medical, social or psychologicalconsequences. Swab Vaginal structure / Unknown 12/12/2024 10:17 AM EDT 12/12/2024 2:18 PM EDT us Sophie GONZALE[facility] MICROBIOLOGY - GENERAL ORDER CLOVER Final Result [facility] [address] [place] [phone] documented in this encounter Visit Diagnoses Diagnosis Healthcare maintenance- Primary Routine screening for STI (sexually transmitted infection) Screening examination for venereal disease Epigastric pain Abdominal pain, epigastric documented in this encounter Additional Health Concerns Assessment Noted Time PHQ-9 Depression Total Score: 2 12/13/19 25 9:45 AM EDT documented as of this encounter Care Teams Donor Relations Officer Relationship Specialty Start Date End Date Sophie Fajardo ANP [address] [place] [address], [place] [address] PCP - General Family Medicine 05/10/23 documented as of this encounter
[2024-12-12 16:08] LABS: CT PCR NOT DETECTED (Not Detect.); NG PCR NOT DETECTED (Not Detect.)
--- OUTSIDE RECORDS SUMMARY | 2024-12-12 17:14 | XMS_ITS | Encounter Summary ---
Author Organization [employer] Address [address] [facility] 7t [place] [address] Care Team Providers Care Tactical Response Group Officer Name Role Phone Sophie Fajardo Primary Care Provider [phone] Reason for Visit * Reason Onset Date Comments Med Refill 12/08/2024 Encounter Details Date Type Department Care Team ([facility] st Contact Info) Description 12/08/2024 Telephone [facility] MEDICINE [address] [place], [place] [phone] Sophie Fajardo ANP [address] [place] [address] Med Refill Social History Tobacco Use Types Packs/Day Years [...] encounter Miscellaneous Notes * Telephone Encounter - Pallavi Valladares LPN - 12/08/2024 3:47 PM EDT Medication pended to PCP. * Telephone Encounter - Javi Linares - 12/08/2024 3:46 PM EDT TC from pt requesting medication refill. Medications needing refill : drospirenone-ethinyl estradiol (Cindy) 3-0.02 MG tablet To be sent to: [facility]/pharmacy #[id number] documented in this encounter Plan of Treatment Not on file documented as of this encounter Visit Diagnoses Not on filedocumented in this encounter Additional Health Concerns Assessment Noted Time PHQ-9 Depression Total Score: 0 06/28/19 1:24 PM EDT documented as of this encounter Care Teams Tactical Response Group Officer Relationship Specialty Start Date End Date Sophie Fajardo ANP [address] [place] [address] PCP - General Family Medicine 05/10/23 documented as of this encounter
--- OUTSIDE RECORDS SUMMARY | 2024-12-12 17:14 | XMS_ITS | Encounter Summary ---
Author Organization [employer] Address [address] [facility] 7t [place] [address] Care Team Providers Care Vice President Talent Management Name Role Phone Sophie Fajardo Primary Care Provider Reason for Visit * Reason Onset Date Comments chart prep 12/11/2024 Encounter Details Date Type Department Care Team ([facility] st Contact Info) Description 12/11/2024 Telephone [facility] MEDICINE [address] [place], [place] [phone] Sophie Fajardo ANP [address] [place] [address] chart prep Social History Tobacco Use Types Packs/Day Years [...] encounter Miscellaneous Notes * Telephone Encounter - Kyrie Gonsalves MA - 12/11/2024 8:37 AM EDT Chart Prep Labs: done Images: done Referrals: not applicable Vaccines due: Flu and HPV Screenings: pap smear Overdue care gaps: SBIRT, SDOH, PHQ-9, NIURKA-7, and Oral health screening documented in this encounter Plan of Treatment Not on file documented as of this encounter Visit Diagnoses Not on filedocumented in this encounter Additional Health Concerns Assessment Noted Time PHQ-9 Depression Total Score: 0 06/28/19 24 1:24 PM EDT documented as of this encounter Care Teams Vice President Talent Management Relationship Specialty Start Date End Date Sophie Fajardo ANP [address] [place] [phone] PCP - General Family Medicine 05/10/23 documented as of this encounter
--- OUTSIDE RECORDS SUMMARY | 2024-12-12 17:14 | XMS_ITS | Encounter Summary ---
Author Organization [employer] Address [address] [facility] 7t [place] [address] Care Team Providers Care Valve Maker Name Role Phone Sophie Fajardo Primary Care Provider [phone] Encounter Details Date Type Department Care Team (Latest Contact Info) Description 12/12/2024 Travel Social History Tobacco Use Types Packs/Day Years [...] AM EDT documented as of this encounter Functional Status * Over the [...] Assessment Author Several days 12/12/2024 9:45 AM EDT Elaine Gonsalves MA * Feeling tired or having little energy Answer Date of Assessment Author Several days 12/12/2024 9:45 AM EDT Elaine Gonsalves MA * Poor appetite or overeating Answer Date of Assessment Author Not at all 12/12/2024 9:45 AM EDT Elaine Gonsalves MA * Feeling bad about yourself - or that you are a failure or have let yourself or your family down Answer Date of Assessment Author Not at all 12/12/2024 9:45 AM EDT Elaine Gonsalves MA * Trouble concentrating on things, such as reading the newspaper or watching television Answer Date of Assessment Author Not at all 12/12/2024 9:45 AM EDT Elaine Gonsalves MA * Moving or speaking so slowly that other people could have noticed? Or the opposite - being so fidgety or restless that you have been moving around a lot more than usual. Answer Date of Assessment Author Not at all 12/12/2024 9:45 AM EDT Elaine Gonsalves MA * Thoughts that you would be better off or hurting yourself in some way Answer Date of Assessment Author Not at all 12/12/2024 9:45 AM ELIAZART Elaine Gonsalves MA * Patient Health Questionnaire-9 Score Answer Date of Assessment Author 2 12/12/2024 9:45 AM EDT Elaine Gonsalves MA * Over the last 2 weeks, how often have you been bothered by any of the following problems? Question Answer Date of Assessment Author Feeling nervous, anxious, or on edge 1 12/12/2024 9:46 AM EDT Kyrie Gonsalves MA Not being able to stop or co ntrol worrying 0 12/12/2024 9:46 AM EDT Kyrie Gonsalves MA Worrying too much about diff erent things 0 12/12/2024 9:46 AM EDT Kyrie Gonsalves MA Trouble relaxing 0 12/12/2024 9:46 AM EDT R Kyrie pathak MA Being so restless that it is [...] Gonsalves MA documented as of this encounter Plan of Treatment Not on file documented as of this encounter Visit Diagnoses Not on filedocumented in this encounter Additional Health Concerns Assessment Noted Time PHQ-9 Depression Total Score: 2 12/13/19 25 9:45 AM EDT documented as of this encounter Care Teams Valve Maker Relationship Specialty Start Date End Date Sophie Fajardo ANP [address] [place] [address] PCP - General Family Medicine 05/10/23 documented as of this encounter
--- OUTSIDE RECORDS SUMMARY | 2024-12-12 17:14 | XMS_ITS | Encounter Summary ---
Author Organization [employer] Address [address] [facility] 7 [place] [address] Care Team Providers Care Brazing Machine Operator Automatic Name Role Phone Sophie Fajardo Primary Care Provider [phone] Reason for Visit * Reason Onset Date Comments Med Refill 12/08/2024 Encounter Details Date Type Department Care Team ([facility] st Contact Info) Description 12/08/2024 Refill [facility] MEDICINE [address] [place], [place] [phone] Sophie Fajardo ANP [address] [place] [address] control counseling Social History Tobacco Use Types [...] documented as of this encounter Care Teams Brazing Machine Operator Automatic Relationship Specialty Start Date End Date Sophie Fajardo ANP [address] [place] [address] PCP - General Family Medicine 05/10/23 documented as of this encounter
--- OUTSIDE RECORDS SUMMARY | 2024-12-12 17:14 | XMS_ITS | Encounter Summary ---
Author Organization [employer] Address [address] [place] [address] Care Team Providers Care Paper Finisher Name Role Phone Sophie Fajardo Primary Care Provider [phone] Reason for Visit * Reason Comments Med Refill Encounter Details Date Type Department Care Team ([facility] st Contact Info) Description 01/17/2023 Refill [facility] MEDICINE [address] [place], [place] [phone] MendonMari FNP [address] [place] [address] Social History Tobacco Use Types Packs/Day Years [...] on filedocumented in this encounter Care Teams Paper Finisher Relationship Specialty Start Date End Date Sophie Fajardo ANP [address] [place] [address] PCP - General Family Medicine 05/10/23 documented as of this encounter
--- OUTSIDE RECORDS SUMMARY | 2024-12-12 17:14 | XMS_ITS | Encounter Summary ---
Author Organization [employer] Address [address] [facility] 7t [place] [address] Care Team Providers Care Pin Inserter Regulator Name Role Phone Sophie Fajardo Primary Care Provider [phone] Reason for Visit * Reason Comments Med Refill Encounter Details Date Type Department Care Team ([facility] st Contact Info) Description 12/08/2024 Refill [facility] MEDICINE [address] [place], [place] [phone] Sophie Fajardo ANP [address] [place], [place] [phone] control counseling Social History Tobacco Use Types [...] documented as of this encounter Care Teams Pin Inserter Regulator Relationship Specialty Start Date End Date Sophie Fajardo ANP [address] [place] [address] PCP - General Family Medicine 05/10/23 documented as of this encounter
--- OUTSIDE RECORDS SUMMARY | 2024-12-12 17:14 | XMS_ITS | Clinical Summary ---
Author Organization [employer] Address [address] [facility] 7t [place] [address] Care Team Providers Care Consulting Solution Director Name Role Phone Sophie Fajardo Primary Care Provider Allergies Active Allergy Reactions Criticality Noted Date Comments Amoxicillin Rash Low 11/12/2020 Medications omeprazole (PriLOSEC) [address] capsuleIndicat ions:Epigastri c pain Take 1 capsule (20 mg) by mouth before breakfast and before evening meal. Do not crush or chew. 120 capsule 06/28/19 24 Active sertraline (Zoloft) 50 MG tablet TAKE 1 TABLET BY MOUTH EVERY DAY 90 tablet 11/25/19 25 Active Cindy 3-0.02 MG tabletIndicati ons: control counseling TAKE 1 TABLET BY MOUTH EVERY DAY IN THE MORNING 84 tablet 3 12/10/19 25 Active drospirenone-e thinyl estradiol (Cindy) 3-0.02 MG tabletIndicati ons: control counseling TAKE 1 TABLET BY MOUTH EVERY DAY IN THE MORNING 84 tablet 3 12/07/19 24 025 Discontinued Blood Pressure kit 1 each 2 times daily. 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 Epigastric pain 12/07/2023 Overview (12/12/2024): Images from the original note were not included. Saw [facility] 09/2023 PPI did not help, h. Pylori breath test negative Now improved 12/2024 Anxiety 06/29/2023 Polycystic ovary syndrome 06/29/2023 Encounters Date Type Department Care Team Description 12/12/2024 9:45 AM EDT Office Visit [address] [address] Sophie Fajardo ANP Healthcare maintenance (Primary Dx); Routine screening for STI (sexually transmitted infection); Epigastric pain 12/12/2024 Travel 12/11/[address] [facility] [address] [place] [phone] Sophie Fajardo ANP chart prep 12/08/[address] [address] Sophie Fajardo ANP Med Refill 12/08/[address] [address] Sophie Fajardo ANP control counseling 12/08/[address] [facility] [address] [place] [phone] Sophie Fajardo ANP control counseling 12/05/2024 Patient Outreach [address] [address] Sophie Fajardo ANP Pre-visit Planning (Pre-visit planning - LVM ) 12/05/2024 Travel 11/22/[address] [facility] [address] [place] [phone] Sophie Fajardo ANP 10/27/2024 [address], [place] [phone] Sophie Fajardo ANP Referral from Last 3 Months Immunizations Immunization Administration Dates Next Due Hep B, Unspecified 07/17/2016 Hep B, adult 12/31/2019,07/28/2019,06/20/2019 Influenza Injectable Quadriv alant Preservative Free IIV4 MDCK 12/25/2022,12/28/2021,12/31/2019 Influenza injectable quadriv alent preservative free 12/29/2020 Influenza, seasonal, injecta ble, preservative free 01/25/2024 MMR 07/17/2016 Tdap 06/19/2022,06/20/2019,07/09/2010 Typhoid, ViCPs 06/19/2022 Social History Tobacco Use [...] 20 12/12/2024 9:44 AM EDT Oxygen Saturation 98% 08/02/2024 9:27 AM EDT Inhaled Oxygen Concentration - - Weight 90 kg (198 lb 6 oz) 12/12/2024 9:44 AM ED T Height 159.4 cm (5' 2.75 ) 12/12/2024 9:44 AM ED T Body Mass Index 35.42 12/12/2024 9:44 AM EDT Plan of Treatment Health Maintenance Due Date Last Done Comments Family Planning (PISQ) 07/28/2006 HPV Vaccines (1 - 3-dose series) 07/28/2006 Pap Smear 07/28/2012 Cervical Cancer Screening 07/28/2021 HPV/Cotest 07/28/2021 Influenza Vaccine (#1) 2024 , 12/25/2022, 12/28/2021, Additional history exists Lipid Panel 11/12/2025 11/12/2020 Disability Screening 12/05/2025 12/05/2024 Alcohol/Substance Use Screening 12/12/2025 12/12/2024 Depression Screening 12/12/2025 12/12/2024, 12/13/19 SDOH Screening 12/12/2025 12/12/2024 Tobacco Screening 12/12/2025 12/12/2024 DTaP/Tdap/Td Vaccines (4 - Td or Tdap) 06/19/2032 06/19/2022, 06/20/2019, 07/09/2010 Zoster Vaccines (1 of 2) 07/28/2041 RSV Patients and Patients Aged 60 years or older (1 - 1-dose 75+ series) 07/28/2066 Hepatitis B Vaccines Completed 12/31/2019, 07/28/2019, 06/20/2019, Additional history exists COVID-19 Vaccine Completed 04/27/2024, [...] Years) and At-Risk Patients (6 to 49) Years Aged Out No longer eligible based on [...] Routine screening for STI (sexually transmitted infection) HEPATITIS C AB W/REFL TO HCV RNA, [...] Recently Relevant to Health Maintenance Results * Chlamydia/N. Gonorrhoeae RNA, TMA, Vagina (12/12/2024 10:17 AM EDT) CT PCR NOT DETECTED Not Detect. [facility] Comment:A not detected test result [...] psychologicalconsequences. NG PCR NOT DETECTED Not Detect. [facility] Comment:A not detected test result [...] 10:17 AM EDT 12/12/2024 2:18 PM EDT Sophie [facility] LAB MICROBIOLOGY - GENERAL ORDER CLOVER Final Result [facility] [address] [place] [phone] * Hepatitis C Antibody with Reflex to HCV, RNA, Quantitative, Real-Time PCR (04/30/2024 1:31 PM EST) [facility] Hepatitis C Antibody Nonreactive Nonreactive [facility] Comment:Antibodies to HCV no t detected; does not exclude early acuteHCV infection. Blood Venous blood specimen / Unknown 04/30/2024 1:31 PM EST 04/30/2024 4:22 PM EST Sophie Fajardo [facility] LAB BLOOD ORDERABLES Final Resul t Performing Organization Address City/[facility] Co de Phone Number [facility] [address] [place] [phone] * HIV-1/2 Antigen and Antibodies, Fourth Generation, with Reflexes (04/30/2024 1:31 PM EST) [facility] HIV AB/AG Nonreactive Nonreactive [facility] Comment:HIV-1 p24 Ag and/or HIV-1/HIV-2 Ab not detected.A test result that is nonreactive does not exclude thepossibility of exposure to or infection with HIV-1 and/orHIV-2. Nonreactive results in this assay for individualswith prior exposure to HIV-1 and/or HIV-2 may be due toantigen and antibody levels that are below the limit ofdetection of this assay.The [employer] HIV Ag/Ab Combo assay result andsupplemental assay results should be interpreted inconjunction with the patient's clinical presentation,history and other laboratory results. If the results areinconsistent with clinical evidence, additional testing issuggested to confirm the result. Blood Venous blood specimen / Unknown 04/30/2024 1:31 PM EST 04/30/2024 4:22 PM EST us Sophie GON[facility] LAB BLOOD ORDERABLES Final Resul t Performing Organization Address City/[facility] Co de Phone Number [facility] [address] [place] [phone] * (ABNORMAL) LIPID PANEL, STANDARD (11/12/2020 10:39 AM EDT) Chol/HDLC Ratio 3.3 <5.0 (calc) [facility] Cholesterol, Total 183 <200 mg/dL [facility] HDL Cholesterol 56 > OR = 50 mg/dL [facility] LDL Cholesterol 107(H) mg/dL (calc) [facility] Comment: Reference range: <100 Desirable range <100 mg/dL for primary prevention; <70 mg/dL for patients with CHD or diabetic patients with > or = 2 CHD risk factors. LDL-C is now calculated using the Anel calculation, which is a validated novel method providing better accuracy than the Friedewald equation in the estimation of LDL-C. Layo MORIN et al. MARLON. 2013;310(19): 3548-2863 (http://education.Pint Please.La Guía [place] Día/faq/WUF495) Non-HDL Cholesterol 127 <130 mg/dL (calc) [facility] Comment: For patients with diabetes plus 1 major ASCVD risk factor, treating to a non-HDL-C goal of <100 mg/dL (LDL-C of <70 mg/dL) is considered a therapeutic option. Triglycerides 100 <150 mg/dL [facility] 11/12/2020 10:3 9 AM EDT Viri An [facility] BLOOD ORDERABLES Final Res ult [facility] [address] from Last 3 Months or Most Recently Relevant to Health Maintenance Insurance [facility] HMO Care Teams Consulting Solution Director Relationship Specialty Start Date End Date Sophie Fajardo ANP [address] [place] [phone] PCP - General Family Medicine 05/10/23
--- OUTSIDE RECORDS SUMMARY | 2024-12-12 17:14 | XMS_ITS | Clinical Summary ---
Author Organization [employer] [facility] ity Address [address] [place] [address] Care Team Providers Care National Sales Trainer Name Role Phone Unavailable Primary Care Provider [...] Cervical Cancer Screening: P ap Smear 07/28/2012 Depression Screening 04/02/2024 COVID-19 Vaccine (1 - 2023-2 5 season) 2024 Influenza Vaccine (#1) 2024 HIB Vaccines Aged Out No longer [...] 5 Years) and At-Risk Patients (6 to 49 Years) Aged Out No longer eligible b ased on patient's age to complete this topic RSV Immunization Patients Un yandy 20 months Aged Out No longer eligible b ased on patient's age to complete this topic Varicella Vaccines Aged Out No longer eligible based on patient's age to complete this topic
--- OUTSIDE RECORDS SUMMARY | 2024-12-12 17:14 | XMS_ITS | Encounter Summary ---
Author Organization [employer] Address [address] [facility] 7t [place] [address] Care Team Providers Care Sales Facilitator Name Role Phone Sophie Fajardo Primary Care Provider [phone] Reason for Visit * Reason Comments Med Refill Encounter Details Date Type Department Care Team ([facility] st Contact Info) Description 10/29/2023 Refill [facility] [address] [place], [place] [phone] Sophie Fajardo ANP [address] [place], [place] [phone] control counseling Social History Tobacco Use Types [...] documented as of this encounter Care Teams Sales Facilitator Relationship Specialty Start Date End Date Sophie Fajardo ANP [address] [place] [phone] PCP - General Family Medicine 05/10/23 documented as of this encounter
--- OUTSIDE RECORDS SUMMARY | 2024-12-12 17:14 | XMS_ITS | Encounter Summary ---
Author Organization [employer] Address [address] [facility] 7t [place] [address] Care Team Providers Care Vending Supervisor Name Role Phone Sophie Fajardo Primary Care Provider [phone] Reason for Visit * Reason Comments Med Change Request Encounter Details Date Type Department Care Team ([facility] Contact Info) Description 05/27/2024 Refill [facility] [address] [place] [address] Name, MD Jairo [address] [place], [place] [phone] Social History Tobacco Use Types Packs/Day Years [...] documented as of this encounter Care Teams Vending Supervisor Relationship Specialty Start Date End Date Sophie Fajardo ANP [address] [place] [address] PCP - General Family Medicine 05/10/23 documented as of this encounter
--- OUTSIDE RECORDS SUMMARY | 2024-12-12 17:14 | XMS_ITS | Encounter Summary ---
Author Organization [employer] Address [address] [place] [address] Care Team Providers Care Boiler Plant Operator Name Role Phone Heather Mello Primary Care Provider [phone] Sophie Fajardo Primary Care Provider [phone] Reason for Visit * Reason Comments Med Refill Encounter Details Date Type Department Care Team (Late st Contact Info) Description 08/10/2022 Refill [facility] [address] [place] [address] Mari Fragoso FNP [address] [place] [address] Social History Tobacco Use Types Packs/Day Years [...] on filedocumented in this encounter Care Teams Boiler Plant Operator Relationship Specialty Start Date End Date Heather Mello FNP [address] [place] [address] [phone] PCP - General Family Medicine 11/24/21 12/27/22 Sophie Fajardo ANP [address] [place] [phone] PCP - General Family Medicine 05/10/23 documented as of this encounter
--- OUTSIDE RECORDS SUMMARY | 2024-12-12 17:14 | XMS_ITS | Encounter Summary ---
Author Organization [employer] Address [address] [facility] 7 [place] [address] Care Team Providers Care Maintenance Of Way Clerk Name Role Phone Sophie Fajardo Primary Care Provider [phone] Reason for Visit * Reason Onset Date Comments Med Refill 05/16/2024 Encounter Details Date Type Department Care Team ([facility] st Contact Info) Description 05/16/2024 Refill [facility] [address] [place], [place] [phone] Sophie Fajardo ANP [address] [place] [address] Social History Tobacco Use Types Packs/Day Years [...] documented as of this encounter Care Teams Maintenance Of Way Clerk Relationship Specialty Start Date End Date Sophie Fajardo ANP [address] [place] [address] PCP - General Family Medicine 05/10/23 documented as of this encounter
--- OUTSIDE RECORDS SUMMARY | 2024-12-12 17:14 | XMS_ITS | Clinical Summary ---
Author Organization [facility] Address [address] [place] [address] [address] [place] [address] Phone Care Team Providers Care Board Handler Name Role Phone Viri An VACATION SALES ADVISOR Primary Care Provider Unav ailable Allergies Active Allergy Reactions Criticality Noted Date Comments Amoxicillin Rash Low 03/19/2021 Medications drospirenone-eth inyl estradioL (SLICK) 3-0.02 mg per tablet Take 1 tablet by mouth daily. Active metFORMIN (GLUCOPHAGE) 500 MG tablet Take 500 mg by mouth daily with breakfast. Active dulaglutide (TRULICITY SUBQ) Inject under the skin. Active Social History Tobacco Use Types Packs/Day Years Used Date Smoking Tobacco: Never Smokeless Tobacco: Never Alcohol Use Standard Drinks/Week Comments Yes 0 (1 standard drink = 0.6 oz pur e alcohol) rarely Education Answer Date Recorded Are you interested in more education? Not on shaina e 2022 Are you concerned about learning? Not on file 2022 No 2022 No 2022 Digital Access Answer Date Recorded No 08/27/2022 No 08/27/2022 Reliable internet access at home? Not on file 08/27/2022 Device with a working camera? Not on file Intimate Partner Violence Answer Date R ecorded Are you denied basic needs s uch as food, clothing, or medical care? No 07/08/2024 In the past 12 months have y ou been in a relationship with a person who hurts, threatens, or tries to control you? No 07/08/2024 Are you denied basic needs s uch as food, clothing, or medical care? No 07/08/2024 In the past 12 months have y ou been in a relationship with a person who hurts, threatens, or tries to control you? No 07/08/2024 Comments Unknown Sex and Gender Information Value Date Recorded Sex Assigned at Female 03/19/2021 5:25 AM EST Legal Sex Female 5:12 AM EST Gender Identity Female 03/19/2021 5:25 AM EST Sexual Orientation Straight 03/19/2021 5: 25 AM EST Last Filed Vital Signs Vital Sign Reading Time Taken Comments Blood Pressure 139/91 07/08/2024 12:56 PM EDT Pulse 66 07/08/2024 12:56 PM EDT Temperature 36.6 C (97.9 F) 07/08/2024 12:56 PM EDT Respiratory Rate 16 07/08/2024 12:56 PM EDT Oxygen Saturation 99% 07/08/2024 12:56 PM EDT Inhaled Oxygen Concentration - - Weight 89.8 kg (198 lb) 07/08/2024 10:06 AM EDT Height 157.5 cm (5' 2 ) 07/08/2024 10:06 AM EDT Body Mass Index 36.21 07/08/2024 10:06 AM EDT Plan of Treatment Health Maintenance Due Date Last Done Comments DEPRESSION SCREENING 2003 HEPATITIS C SCREENING 07/28/2009 HIV ONE-TIME SCREENING (18-6 5 YEARS) 07/28/2009 PAP SMEAR 07/28/2012 INFLUENZA VACCINE (#1) 2024 COVID-19 VACCINE (2023-2 5 season) 2024 CREATININE LEVEL 07/08/2025 07/08/2024, 01/30/2022 Adult Td,Tdap Booster 06/19/2029 06/20/2019 , 07/09/2010 SMOKING STATUS SCREENING (On ce After 26 Yrs) Completed 07/08/2024 HEPATITIS A VACCINES Aged Out No long er eligible based on patient's age to complete this topic HIB VACCINES Aged Out No longer eligi ble based on patient's age to complete this topic MENINGOCOCCAL VACCINES (ACWY) Aged Out No longer eligible based on patient's age to complete this topic MENINGOCOCCAL VACCINES (B) Aged Out N o longer eligible based on patient's age to complete this topic PNEUMOCOCCAL VACCINES (0-49 years) Aged Out No longer eligible b ased on patient's age to complete this topic Medical Devices Not on file Procedures Procedure Name Priority Date/Time Associated Diagnosis Comments BASIC METABOLIC PANEL STAT 07/08/2024 10:18 AM EDT from Last 3 Months or Most Recently Relevant to Health Maintenance Results * (ABNORMAL) Basic metabolic panel (07/08/2024 10:18 AM EDT) SODIUM 138 133 - 146 mmol/L [facility] CHLORIDE 107 96 - 108 mmol/L [facility] POTASSIUM 4.4 3.3 - 5.1 mmol/L [facility] CO2 20(L) 21 - 35 mmol/L [facility] BUN 12 6 - 19 mg/dL [facility] CREATININE 0.70 0.5 - 1.5 mg/dL [facility] GLUCOSE 83 70 - 99 mg/dL [facility] CALCIUM 8.7 8.4 - 10.3 mg/dL [facility] EGFR 118 >59 mL/min/1.7 3m2 [facility] Comment:Estimated glomerular filtration rate calculated using the CKD-EPI refit equation. ANION GAP 15 10 - 20 mmol/L [facility] Blood 07/08/2024 10:1 8 AM EDT 07/08/2024 10:23 AM EDT Mike JOSHUA, JUSTINE LAB BLOOD ORDERABLES Fi nal Result [address] [phone] from Last 3 Months or Most Recently Relevant to Health Maintenance Insurance [facility] HMO POS [facility] HMO POS [facility] H[facility] POS Care Teams Board Handler Relationship Specialty Start Date End Date Juve, Viri May, VACATION SALES ADVISOR PCP - General Family Medicine 03/19/21 Additional Source Comments The information contained in this document represents components of the legal health record. It is not the complete legal health record.[facility]
--- OUTSIDE RECORDS SUMMARY | 2024-12-12 17:14 | XMS_ITS | Encounter Summary ---
Author Organization [employer] Address [address] [place] [address] Care Team Providers Care Clinical Care Leader Name Role Phone Heather Mello Primary Care Provider [phone] Sophie Fajardo Primary Care Provider [phone] Reason for Visit * Reason Comments Med Refill Encounter Details Date Type Department Care Team (Late st Contact Info) Description 09/29/2022 Refill [facility] MEDICINE [address] [place] [address] Mari Fragoso FNP [address] [place] [address] Social History Tobacco Use Types Packs/Day Years [...] on filedocumented in this encounter Care Teams Clinical Care Leader Relationship Specialty Start Date End Date Heather Mello FNP [address] [place] [address] [phone] PCP - General Family Medicine 11/24/21 12/27/22 Sophie Fajardo ANP [address] [place] [phone] PCP - General Family Medicine 05/10/23 documented as of this encounter
== END 2024-12-12 14:18 | disposition home or self-care (01) ==
LOC: HO.HHCLNP 14:17
PROVIDERS: Visit Provider Nurse Practitioner Primary Care
DX: Z20.2 Contact with and (suspected) exposure to infections with a predominantly sexual mode of transmission (principal)
CPT/HCPCS: 87491; 87591